=== PATIENT | female | born 1945 | race African-American/Black ===

== ENCOUNTER 2019-07-14 17:27 | Inpatient (IN) | payer MEDICARE ==
[~2019-07-14] VITALS: Ht 167.6 cm; Wt 67.1 kg
[2019-07-14] MEDS ORDERED: ELAVIL10 MG PO (23:30)
[2019-07-14] MEDS ORDERED: PREDNISONE5 MG PO (23:35)
[2019-07-14] MEDS ORDERED: ZYLOPRIM300 MG PO (23:36)
[2019-07-14 23:40] VITALS: BP 151/67
[2019-07-14] MEDS ORDERED: LIPITOR80 MG PO (23:40)
[2019-07-14] MEDS ORDERED: BUMEX2 MG PO (23:41)
[2019-07-14] MEDS ORDERED: COREG 3.1253.125 MG PO (23:42)
[2019-07-14] MEDS ORDERED: CARAFATE1 G PO (23:44)
[2019-07-14] MEDS ORDERED: FOLIC ACID1 MG PO (23:45)
[2019-07-14] MEDS ORDERED: FUROSEMIDE40 MG PO (23:47)
[2019-07-14] MEDS ORDERED: NEURONTIN 300300 MG PO (23:48)
[2019-07-14 23:50] VITALS: BMI 21.2
[2019-07-14] MEDS ORDERED: FERROUS SULFAT325 MG PO (23:54)
[2019-07-14] MEDS ORDERED: GLIMEPIRIDE2 MG PO (23:54)
[2019-07-14] MEDS ORDERED: COZAAR25 MG PO (23:55)
[2019-07-14] MEDS ORDERED: PROTONIX40 MG PO (23:56)
[2019-07-14] MEDS ORDERED: TREXALL7.5 MG PO (23:56)
[2019-07-14] MEDS ORDERED: POTASSIUM CHLO10 ME1 PO (23:57)
[2019-07-14] MEDS ORDERED: JANUVIA25 MG PO (23:59)
[2019-07-15] VITALS (23 sets, daily range): BP systolic 99–151; BP diastolic 45–89; BMI 23.0
[2019-07-15 00:24] LABS: ANION GAP 16.4 mmol/L (8-16); CALCIUM 10.3 mg/dL (8.5-10.1); CARBON DIOXIDE 24.5 mmol/L (21.0-32.0); CREATININE - SERUM 6.2 mg/dL (0.6-1.3); POTASSIUM - SERUM 4.9 mmol/L (3.5-5.1)
[2019-07-15 00:43] LABS: HEMATOCRIT 30.1 % (36.0-48.0); HEMOGLOBIN 9.7 g/dL (12-16); MCH 30.2 pg (26.0-34.0); MCHC 32.2 g/dL (31.0-37.0); MCV 93.8 fL (80.0-100.0); MEAN PLATELET VOLUME 11.2 fL (7.4-10.4); PLATELET COUNT 568 10x3/uL (130-400); RBC 3.21 10x6/uL (4.00-5.40); RDW 21.2 % (11.5-14.5); WBC 24.4 10x3/uL (4.8-10.8)
[2019-07-15 01:11] LABS: LYMPHOCYTES 10 % (15-50); MONOCYTES 7 % (2-11); NEUTROPHILS 78 % (40-80); PLATELET ESTIMATE INCREASED
[2019-07-15 04:30] LABS: INR 1.11 (0.85-1.17); PROTIME 13.8 SECONDS (11.6-15.0)
[2019-07-15 04:38] LABS: ALBUMIN 2.4 g/dL (3.4-5.0); ANION GAP 18.5 mmol/L (8-16); BILIRUBIN - TOTAL 0.54 mg/dL (0.2-1.3); CALCIUM 10.2 mg/dL (8.5-10.1); CARBON DIOXIDE 22.6 mmol/L (21.0-32.0); CREATININE - SERUM 6.5 mg/dL (0.6-1.3); MAGNESIUM - SERUM 1.9 mg/dL (1.8-2.4); PHOSPHOROUS 4.9 mg/dL (2.5-4.9); POTASSIUM - SERUM 5.1 mmol/L (3.5-5.1); PROTEIN - SERUM 6.3 g/dL (6.4-8.2); VANCOMYCIN - RANDOM 4.9 ug/mL (10.0-20.0)
[2019-07-15 04:44] LABS: BASOPHILS 0.6 % (0-2); EOSINOPHILS 0 % (0-7); HEMATOCRIT 29.2 % (36.0-48.0); HEMOGLOBIN 9.4 g/dL (12-16); IMMATURE GRANULOCYTES 9.5 % (0-5); MCH 30.3 pg (26.0-34.0); MCHC 32.2 g/dL (31.0-37.0); MCV 94.2 fL (80.0-100.0); MEAN PLATELET VOLUME 11.2 fL (7.4-10.4); MONOCYTES 13.2 % (2-11); NEUTROPHILS 69.7 % (40-80); PLATELET COUNT 569 10x3/uL (130-400); RDW 21.3 % (11.5-14.5); WBC 24.2 10x3/uL (4.8-10.8)
--- NOTE | 2019-07-15 07:16 | NUR ---
CALLED PHYSICIAN CONSULT TO RENAL AND SPOKE WITH DR. GUPTA.
--- NOTE | 2019-07-15 07:22 | NUR ---
RECEIVED REPORT FROM SYLVIA WARREN. PT RESTING IN BED C VSS. RESPONDS TO PAIN. WILL CHECK ORDERS AND CONTINUE TO MONITOR
--- NOTE | 2019-07-15 08:33 | NUR ---
PEDAL PULSES WEAK BY DOPPLER BILATERIALLY
--- NOTE | 2019-07-15 09:00 | NUR ---
SPOKE TO FAMILY MEMBER ON PHONE. CHANGED PASSWORD TO [facility]. ALSO STATED OTHER FAMILY MEMBERS WILL BE COMING TO VISIT TODAY
--- NOTE | 2019-07-15 10:44 | NUR ---
APTT IS WITHIN GOAL RANGE AT 70 FROM 0930 DRAW. WILL LEAVE HEPARIN DRIP AT 1300UNITS/HR AND REDRAW APTT IN AM.
--- NOTE | 2019-07-15 11:00 | NUR ---
DIALYSIS NURSE HERE TO BEGIN DIALYZING. VSS
--- NOTE | 2019-07-15 14:30 | NUR ---
DIALYSIS COMPLETED. 1 LITER REMOVED. VSS
--- NOTE | 2019-07-15 15:22 | NUR ---
PATIENT UNABLE TO DRINK WATER FROM STRAW SO VALTREX MED HELD. SWALLOW EVAL ORDERED. WILL TRY AGAIN TOMORROW
--- NOTE | 2019-07-15 15:25 | NUR ---
REASSESSMENT COMPLETE, NO CHANGES NOTED, PT RESTING AT THIS TIME, VSS, CALL LIGHT IN REACH
--- NOTE | 2019-07-15 18:03 | NUR ---
20 GUAGE PIV STARTED IN LEFT AC.
--- NOTE | 2019-07-15 19:06 | NUR ---
REPORT RECIEVED, PT RETURNED FROM CTA. PT RESTING IN BED, RESPONDS TO VOICE, GARBLED SPEECH. ASSESSMENT COMPLETED, NO ACUTE DISTRESS NOTED. RT SUBCLAVIAN HEMOSPLIT, DRESSING CDI. L JUGULAR INFUSING, RT WRIST PIV INFUSING, SEE IV FLOWSHEET, L AC PIV TO SL. PT ON ROOM AIR, WILL CONTINUE TO MONITOR.
--- NOTE | 2019-07-15 21:00 | NUR ---
PT RESTING IN BED, AROUSES TO VOICE BUT QUICKLY DRIFTS OFF. PM MEDS ADMINISTERED, WILL CONTINUE TO MONITOR.
--- NOTE | 2019-07-15 23:00 | NUR ---
PT RESTING IN BED, RESPIRATIONS EVEN AND UNLABORED, NO ACUTE DISTRESS NOTED.
[2019-07-16] VITALS (15 sets, daily range): BP systolic 107–136; BP diastolic 38–74; Ht 167.6 cm; Wt 67.1 kg
--- NOTE | 2019-07-16 01:00 | NUR ---
PT RESTING IN BED, NO SIGNS OF ACUTE DISTRESS.
--- NOTE | 2019-07-16 03:00 | NUR ---
PT PERIODICALLY SHAKES HEAD FROM LEFT TO RIGHT FOR A BRIEF PERIOD, DENIES PAIN. ORAL CARE PROVIDED, WILL CONTINUE TO MONITOR.
[2019-07-16 03:59] LABS: BASOPHILS 0.3 % (0-2); EOSINOPHILS 0.1 % (0-7); HEMATOCRIT 25.7 % (36.0-48.0); HEMOGLOBIN 8.3 g/dL (12-16); IMMATURE GRANULOCYTES 9.1 % (0-5); LYMPHOCYTES 6.8 % (15-50); MCH 30.2 pg (26.0-34.0); MCHC 32.3 g/dL (31.0-37.0); MCV 93.5 fL (80.0-100.0); MEAN PLATELET VOLUME 10.9 fL (7.4-10.4); MONOCYTES 11.6 % (2-11); NEUTROPHILS 72.1 % (40-80); PLATELET COUNT 611 10x3/uL (130-400); RBC 2.75 10x6/uL (4.00-5.40); RDW 21.2 % (11.5-14.5); WBC 23.8 10x3/uL (4.8-10.8)
[2019-07-16 04:10] LABS: ANION GAP 17.2 mmol/L (8-16); BILIRUBIN - TOTAL 0.55 mg/dL (0.2-1.3); CALCIUM 9.1 mg/dL (8.5-10.1); MAGNESIUM - SERUM 1.7 mg/dL (1.8-2.4); PHOSPHOROUS 5.5 mg/dL (2.5-4.9); PROTEIN - SERUM 5.7 g/dL (6.4-8.2)
[2019-07-16 04:16] LABS: CREATININE - SERUM 4.7 mg/dL (0.6-1.3); POTASSIUM - SERUM 4.2 mmol/L (3.5-5.1)
--- NOTE | 2019-07-16 05:00 | NUR ---
PT CONTINUES TO OCCASIONALLY MOAN FOR BREIF PERIODS OF TIME. NO ACUTE DISTRESS NOTED, WILL CONTINUE TO MONITOR.
--- NOTE | 2019-07-16 08:33 | NUR ---
REPORT RECEVIED FROM THE OFF GOING RN. SEE ASSESSMENT IN THE PTS FLOW SHEET. PT LYING IN BED. PT AROUSES TO VERBAL STIMULI BUT ONLY MAKES GARBLED NOISES. PT ABLE TO FORESTRY FOREMAN HER HANDS AND SQUEEZE HANDS ON COMOMAND BUT ONCE ASKED TO MOVE HER FEET, SHE WILL NOT. WHENEVER ASSESSING FEET, PT STARTED TO MOAN VERY LOUDLY. RIGHT SUB CLAV HEMOSPLIT NOTED. DRESSING CD/I. LEFT EJ IV NOTED. PATENT. DRESSING C/D/I. PPM NOTD TO LEFT UPPER CHEST. PACING ON THE MONITOR. VSS AT THIS TIME. CALL LIGHT IN REACH. WILL CONT POC.
--- NOTE | 2019-07-16 11:00 | NUR ---
REASSESSMENT COMPLETE PER FLOW SHEET. VSS. PT DENIES NEEDS. REPOSITIONED FOR COMFORT. WILL CONTINUE TO MONITOR
--- NOTE | 2019-07-16 12:00 | NUR ---
PT MORE AWAKE AND ANSWEREING YES AND NO QUESTIONS. DYSPAGIA NOTED.
--- NOTE | 2019-07-16 13:19 | NUR ---
PT INC OF BOWEL. PT CLEANED. 2 OPEN SORES NOTED TO THE PTS BUTTOCKS. FULL CHD BATH GIVEN AND BED LINEN CHANGED. CALL LIGHT IN REACH. WILL CONT POC.
[2019-07-16 14:02] LABS: HEMATOCRIT 28.3 % (36.0-48.0); HEMOGLOBIN 8.7 g/dL (12-16)
--- NOTE | 2019-07-16 20:05 | NUR ---
REPORT GIVEN TO JOHNNY SCHUMACHER VSS. TRASPORTED TO ROOM 9131
[2019-07-17] VITALS: BP 138/41
--- NOTE | 2019-07-17 02:13 | NUR ---
RECEIVED TO FLOOR ACCOMPANIED BY STAFF. PT INCONT OF BOWEL, BM LOOSE. SORES TO COCCYX NOTED. PERICARE PROVIDED. PT IS ALERT AND ANSWERS QUESTIONS CORRECTLY IF SHE REPLIES. REPORTS PAIN TO BILAT LOWER EXTREMETIES. HEPARIN DRIP VERIFIED WITH RN. INFUSING AT 12CC/HR. WILL CONTINUE TO MONITOR.
[2019-07-17 04:00] VITALS: BP 131/43
[2019-07-17 06:37] LABS: ALBUMIN 2.1 g/dL (3.4-5.0); BILIRUBIN - TOTAL 0.63 mg/dL (0.2-1.3); CALCIUM 8.4 mg/dL (8.5-10.1); POTASSIUM - SERUM 4.8 mmol/L (3.5-5.1); PROTEIN - SERUM 5.2 g/dL (6.4-8.2)
[2019-07-17 06:38] LABS: ANION GAP 26.4 mmol/L (8-16); CARBON DIOXIDE 16.4 mmol/L (21.0-32.0); CREATININE - SERUM 6.5 mg/dL (0.6-1.3); HEMATOCRIT 28.9 % (36.0-48.0); HEMOGLOBIN 8.9 g/dL (12-16); MAGNESIUM - SERUM 2.6 mg/dL (1.8-2.4); MCH 30.2 pg (26.0-34.0); MCHC 30.8 g/dL (31.0-37.0); MEAN PLATELET VOLUME 10.7 fL (7.4-10.4); PLATELET COUNT 677 10x3/uL (130-400); RBC 2.95 10x6/uL (4.00-5.40); WBC 27.1 10x3/uL (4.8-10.8)
--- NOTE | 2019-07-17 06:48 | NUR ---
I have reviewed this patient and I concur with the Shift Assessment completed by the Licensed Practical Nurse today this shift.
--- NOTE | 2019-07-17 07:16 | NUR ---
REPORT RECEIVED. WILL CONTINUE WITH POC. PT CURRENTLY LYING ON RIGHT SIDE RESTING. CALL LIGHT W/I REACH. PT IS ON CONTACT ISO FOR C-DIFF. RR EVEN AND UNLABORED ON RA. HEPARIN INFUSING @12ML/HR VIA R.FOR PIV. NS INFUSING @KVO VIA L.IJ PIV. NO S/S OF DISTRESS NOTED. WILL CTM.
[2019-07-17 08:03] VITALS: BP 147/73
[2019-07-17 08:15] LABS: LYMPHOCYTES 8 % (15-50); MONOCYTES 9 % (2-11); NEUTROPHILS 78 % (40-80); PLATELET ESTIMATE INCREASED
--- NOTE | 2019-07-17 09:42 | NUR ---
AM MEDICATIONS ADMININSTERED. PT HAD LARGE LOOSE BM. CLEANED PT AND APPLIED NEW LINEN. PT HAS 3 SMALL VANESSA SIZE STAGE TWO BREAKDOWN AREAS ON COCCYX. APPLIED MEPILEX DRESSING. PT RESPONDS TO VERBAL COMMANDS BUT IS LETHARGIC AND CONFUSED TO SITUATION. WILL CTM.
[2019-07-17 11:55] VITALS: BP 148/61
--- NOTE | 2019-07-17 13:24 | NUR ---
Nutrition Follow-up: NPO since admit. Procalamine started @ 50 mL/hr. Being seen by ST; they report that she is safe for PO intake of at least puree with thin liquids but it is unlikely that she will eat much 2/2 odynophagia. Oral ulcerations present. Per nurse, pt with 3 small evelyn size stage 2 breakdown areas on coccyx. Diet: NPO Wt: 148# Last BM: 07/17 Labs noted: Glu 144, K+ 4.8, PO4 7.0, Alb 2.1 Meds noted: Humalog -Procalamine at current rate provides 294 kcal & 36 g protein; inadequate to meet needs. -Rec consider more substantial nutrition support. Pt has increased needs 2/2 dialysis and skin breakdowns. RD available for assistance. -Please obtain new wt. -RD following.
[2019-07-17 13:49] LABS: HEMATOCRIT 25.3 % (36.0-48.0)
[2019-07-17 15:55] VITALS: BP 127/71
--- NOTE | 2019-07-17 17:23 | MORECARE ---
CASE MANAGEMENT DISCHARGE SUMMARY PATIENT: SUMI MCKAY UNIT: [id number] ADM DATE: 07/14/19 AGE: 74 : 43 SEX: F ROOM/BED: D.2566 AUTHOR: NATA OROPEZA PHYSICIAN: REFERRING PHYSICIAN: EDA GUERRA MD DATE OF SERVICE: 07/17/19 Discharge Plan Patient Name: SUMI MCKAY Facility: [facility]:[place] : 1945 Planned Disposition: Anticipated Discharge Date: Discharge Date: Expected LOS: Initial Reviewer: [id number] Initial Review Date: 07/17/2019 Generated: 07/17/19 6:23 pm Comments DCP- Discharge Planning Updated by [email or web address]: Amy Salamanca on 07/17/19 4:[address] Patient Name: SUMI MCKAY Admission Status: Elective Accout number: [id number] Admission Date: 07-14-2019 : 1945 Admission Diagnosis: Attending: EDA GUERRA Current LOS: 3 Anticipated DC Date: Planned Disposition: Primary Insurance: [facility] MEDIC[employer] SOLUTIONS Discharge Planning Comments: CM MET WITH PATIENT BUT IS VERY HARD TO UNDERSTAND BECAUSE OF THE SORES ON HER MOUTH. SHE DOES HAVE HH BUT DOESN'T KNOW WHO WITH AND HER [facility] LIVES WITH HER. CM WILL TALK TO [facility] WHEN SHE IS HERE. CM TO FOLLOW AND ASSIST. Typewriter Assembler: Amy Salamanca Patient Name: SUMI MCKAY Page 85058 at 1723 All edits/amendments must be made on the electronic document DICTATION DATE: 07/17/191722 TOP CUTTER: EUNICE 07/17/191722 RPT#: [id number] DC DATE: STATUS: ADM IN [facility] [address] [place] [address] END OF REPORT
--- NOTE | 2019-07-17 19:40 | NUR ---
REPORT RECIEVED AND ROUNDING COMPLETE. PATIENT LAYING IN BED IN SUPINE POSITION. PATIENT HAS A LEFT IJ PIV, LEFT AC PIV AND A RIGHT HAND PIV. ALL PIV ARE PATENT AND RUNNING FLUIDS, NO S/SX OF INFILTRATION OR INFECTION AT THIS TIME. PATIENT IS RECIVING 02 VIA NASAL CANNULA AT THIS TIME. PATIENT IS ISO FOR CDIFF. PATIENT ASKED FOR A DRINK OF WATER, ASSISTED WITH THIS. PATIENT IS SHOWING NO S/SX OF DISTRESS AT THIS TIME. CALLIGHT WITHIN REACH AND BED IN LOWEST LOCKED POSITION.
[2019-07-17 20:00] VITALS: BP 120/38
--- NOTE | 2019-07-17 20:41 | NUR ---
CALLED AND TALKED WITH GUILLE CONCERNING PATIENT. PATIENT'S TEMP. IS ELEVATED AND B/P IS LOW. PATIENT IS LETHARGIC. GUILLE HENDERSON HAS NO NEW ORDERS BUT STATED TO CALL RENAL AT THIS TIME. RENAL RETAIL ROUTE SUPERVISOR HAS BEEN PAGED AWAITING CALL BACK.
[2019-07-17 21:26] LABS: HEMOGLOBIN 7.6 g/dL (12-16)
[2019-07-18] VITALS: BP 132/48
--- NOTE | 2019-07-18 01:59 | NUR ---
I have reviewed this patient and I concur with the Shift Assessment completed by the Licensed Practical Nurse today this shift.
--- NOTE | 2019-07-18 03:39 | NUR ---
PATIENT IS RECIEVING A BED BATH BY CNAS AT THIS TIME.
[2019-07-18 04:00] VITALS: BP 111/36
[2019-07-18 05:18] LABS: BASOPHILS 0.2 % (0-2); EOSINOPHILS 0.3 % (0-7); HEMATOCRIT 22.8 % (36.0-48.0); IMMATURE GRANULOCYTES 7.1 % (0-5); LYMPHOCYTES 7.1 % (15-50); MCH 30.3 pg (26.0-34.0); MCHC 31.6 g/dL (31.0-37.0); MCV 95.8 fL (80.0-100.0); MEAN PLATELET VOLUME 9.9 fL (7.4-10.4); NEUTROPHILS 73.3 % (40-80); PLATELET COUNT 711 10x3/uL (130-400); RBC 2.38 10x6/uL (4.00-5.40); RDW 20.9 % (11.5-14.5); WBC 29.3 10x3/uL (4.8-10.8)
[2019-07-18 05:23] LABS: HEMOGLOBIN 7.2 g/dL (12-16)
[2019-07-18 05:25] LABS: ALBUMIN 1.8 g/dL (3.4-5.0); BILIRUBIN - TOTAL 0.46 mg/dL (0.2-1.3); CALCIUM 8.1 mg/dL (8.5-10.1); CREATININE - SERUM 7.8 mg/dL (0.6-1.3); MAGNESIUM - SERUM 2.7 mg/dL (1.8-2.4); PHOSPHOROUS 6.7 mg/dL (2.5-4.9); POTASSIUM - SERUM 4.3 mmol/L (3.5-5.1); PROTEIN - SERUM 4.8 g/dL (6.4-8.2); VANCOMYCIN - RANDOM 14.7 ug/mL (10.0-20.0)
[2019-07-18 05:27] LABS: ANION GAP 18.7 mmol/L (8-16); CARBON DIOXIDE 21.6 mmol/L (21.0-32.0)
--- NOTE | 2019-07-18 07:44 | NUR ---
PT RESTING PEACEFULLY, NO SIGNS AND SYMPTOMS OF ACUTE DISTRESS. BREATHS EVEN, REGULAR, AND UNLABORED. CL IN REACH,SR2. NO FAMILY AT BEDSIDE.
[2019-07-18 08:13] VITALS: BP 130/37
[2019-07-18 12:49] VITALS: BP 130/39
--- NOTE | 2019-07-18 15:55 | NUR ---
PT IN ROOM DIALYSIS
[2019-07-18 16:42] VITALS: BP 126/60
--- NOTE | 2019-07-18 17:29 | NUR ---
I have reviewed this patient and I concur with the Shift Assessment completed by the Licensed Practical Nurse today this shift.
--- NOTE | 2019-07-18 19:26 | NUR ---
RECEIVED REPORT, WILL ASSUME CARE OF PT, PT IS HAVING DIALYSIS IN ROOM, ASKING FOR PAIN MEDS, WILL GIVE WHEN TIME, BED IS LOW, SRX2, CALL LIGHT IN REACH, WILL CONTINUE PLAN OF CARE
[2019-07-18 20:05] VITALS: BP 131/62
[2019-07-19] VITALS: BP 136/56
[2019-07-19 04:00] VITALS: BP 134/64
--- NOTE | 2019-07-19 05:35 | NUR ---
I have reviewed this patient and I concur with the Shift Assessment completed by the Licensed Practical Nurse today this shift.
[2019-07-19 06:15] LABS: ALBUMIN 2.1 g/dL (3.4-5.0); ANION GAP 21.8 mmol/L (8-16); BILIRUBIN - TOTAL 0.58 mg/dL (0.2-1.3); CALCIUM 8.7 mg/dL (8.5-10.1); CARBON DIOXIDE 19.8 mmol/L (21.0-32.0); CREATININE - SERUM 6.7 mg/dL (0.6-1.3); MAGNESIUM - SERUM 2.5 mg/dL (1.8-2.4); PHOSPHOROUS 6.2 mg/dL (2.5-4.9); POTASSIUM - SERUM 4.6 mmol/L (3.5-5.1); PROTEIN - SERUM 5.7 g/dL (6.4-8.2)
[2019-07-19 06:17] LABS: HEMATOCRIT 35.4 % (36.0-48.0); HEMOGLOBIN 11.6 g/dL (12-16); MCH 30.3 pg (26.0-34.0); MCHC 32.8 g/dL (31.0-37.0); MCV 92.4 fL (80.0-100.0); MEAN PLATELET VOLUME 10.7 fL (7.4-10.4); PLATELET COUNT 679 10x3/uL (130-400); RBC 3.83 10x6/uL (4.00-5.40); RDW 19.9 % (11.5-14.5)
--- NOTE | 2019-07-19 07:00 | NUR ---
RECEIVED REPORT. ASSUMED CARE OF PATIENT. RESTING IN BED WITH EYES CLOSED. RESP EVEN AND UNLABORED. HEPARIN INFUSING AT 12 UNITS/HR, AWAITING FOR PTT TO RESULT. CALL LIGHT WITHIN REACH. NO ACUTE DISTRESS.
--- NOTE | 2019-07-19 07:24 | NUR ---
PTT RESULTED 104.1. PER PROTOCOL, HEPARIN DRIP OFF AT THIS MINUTE AND WILL KEEP OFF FOR 30 MINUTES AND WHEN RESUMED IN 30MINUTES, WILL DECREASE BY 200 UNITS/HR. CURRENT RATE RUNNING @ 12, WHEN RESTARTED IN 30 MINUTES, HEPARIN WILL BE INFUSED AT 10 UNITS/HR.
--- NOTE | 2019-07-19 07:56 | NUR ---
HEPARIN TURNED BACK ON AT THIS TIME AND INFUSING AT 10 UNITS/HR. REDRAW TIMED FOR 6 HOURS FROM NOW.
[2019-07-19 08:00] VITALS: BP 123/56
[2019-07-19 08:25] LABS: EOSINOPHILS 1 % (0-7); LYMPHOCYTES 5 % (15-50); MONOCYTES 9 % (2-11); NEUTROPHILS 82 % (40-80); PLATELET ESTIMATE INCREASED
--- NOTE | 2019-07-19 08:45 | NUR ---
FSBS 292. 6 UNITS HUMALOG ADMINISTERED.
--- NOTE | 2019-07-19 10:14 | NUR ---
UNABLE TO ADMINISTER ANY PO MEDICATIONS TO PATIENT. SHE STARTED SHAKING HER HEAD AND CLOSING HER MOUTH MOANING THE WORD NO EVEN WHEN THIS DOT ETCHER TRIED TO PERFORM ORAL CARE. PATIENT MEDICATED FOR PAIN AT THIS TIME. NO DISTRESS.
--- NOTE | 2019-07-19 11:26 | NUR ---
SPOKE TO SHONDA IN PHARMACY TO ADJUST DAYS THAT VALTREX IS GIVEN. PATIENT RECEIVES HD ON ,, AND VALTREX IS TO BE GIVEN ON HD DAYS AFTER HD IS COMPLETED. SHONDA STATED SHE WILL CORRECT IT TO REFLECT DIALYSIS DAYS ON THE DEC.
--- NOTE | 2019-07-19 11:37 | NUR ---
PATIENT RESTING PEACEFULLY AT THIS TIME. NO MOANING OR GRIMACING. NO FAMILY AT BEDSIDE. CALL LIGHT WITHIN REACH. NO DISTRESS.
[2019-07-19 12:41] VITALS: BP 113/39
--- NOTE | 2019-07-19 13:55 | NUR ---
AT BEDSIDE FOR ROUNDS. PATIENT IS IN PAIN AND CRIES OUT WHEN MOVED, TOUCHED, REPOSITIONED. DISCUSSED PATIENTS PAIN MEDICATIONS. NEW ORDER RECEIVED FOR DILAUDID PRN BUPRENEX IS NOT CONTROLLING PATIENTS PAIN. THANKED .
--- NOTE | 2019-07-19 14:26 | NUR ---
FSBS 252. 6 UNITS HUMALOG ADMINISTERED. ORAL CARE PROVIDED. CALL LIGHT WITHIN REACH.
[2019-07-19 15:13] VITALS: BP 110/40
--- NOTE | 2019-07-19 15:29 | NUR ---
PTT RESULTED 74.0, NO CHANGE IN DOSE AND NO REDRAW UNTIL TOMORROW AM. LAB ORDER FOR PTT IN AM PLACED.
--- NOTE | 2019-07-19 16:00 | NUR ---
PATIENTS FAMILY AT BEDSIDE. DISCUSSED PAIN MEDICATION WITH THE DAUGHTER DAVID AND THAT THE PATIENTS BP HAS BEEN LOW AND THE PAIN MEDICATION IS DROPPING HER BP. EDUCATED ABOUT RISK VS BENEFITS. PATIENTS DAUGHTER AT THIS TIME DID NOT WANT TO TAKE A CHANCE OF "BOTTOMING" OUT BLOOD PRESSURE DIASTOLIC PRESSURE IS 33 AT THIS TIME. WILL CONTINUE TO MONITOR AND PROVIDE COMFORT TO PATIENT.
--- NOTE | 2019-07-19 19:24 | NUR ---
PT CARE ASSUMED. PT RESTING IN BED ON HER LEFT SIDE. RR EVEN AND UNLABORED ON RA. NO S/S OF DISTRESS NOTED. NO NEEDS EXPRESSED. CALL LIGHT IN REACH. WILL CTM.
[2019-07-19 20:00] VITALS: BP 130/67
[2019-07-20] VITALS: BP 120/43
[2019-07-20 04:00] VITALS: BP 136/48
[2019-07-20 06:55] LABS: BASOPHILS 0.7 % (0-2); EOSINOPHILS 0.2 % (0-7); HEMATOCRIT 33.4 % (36.0-48.0); HEMOGLOBIN 10.9 g/dL (12-16); IMMATURE GRANULOCYTES 7.1 % (0-5); LYMPHOCYTES 4.6 % (15-50); MCHC 32.6 g/dL (31.0-37.0); MEAN PLATELET VOLUME 10.1 fL (7.4-10.4); MONOCYTES 13.7 % (2-11); NEUTROPHILS 73.7 % (40-80); PLATELET COUNT 615 10x3/uL (130-400); RBC 3.63 10x6/uL (4.00-5.40); RDW 19.3 % (11.5-14.5)
[2019-07-20 07:10] LABS: ANION GAP 21.4 mmol/L (8-16); CALCIUM 8.8 mg/dL (8.5-10.1); CARBON DIOXIDE 18.9 mmol/L (21.0-32.0); CREATININE - SERUM 7.5 mg/dL (0.6-1.3); POTASSIUM - SERUM 5.3 mmol/L (3.5-5.1); VANCOMYCIN - RANDOM 21.9 ug/mL (10.0-20.0)
[2019-07-20 08:02] VITALS: BP 127/43
--- NOTE | 2019-07-20 08:11 | NUR ---
PTT THIS AM WAS 64. INCREASED HEPARIN IFUSION FROM 10 TO 11 ML/HR PER PROTOCOL. ORDERED REPEAT PTT FOR 1400 PER PROTOCOL.
--- NOTE | 2019-07-20 12:43 | NUR ---
PT FAMILY HERE AND HAS DECIDED TO ADMIT PT TO HOSPICE SERVICES. NOTIFIED GEORGES WITH CASE MANAGEMENT. PT RESTING IN BED, FAMILY DENIES ANY NEEDS AT THIS TIME, WILL CONT TO FOLLOW POC
--- NOTE | 2019-07-20 13:11 | MORECARE ---
CASE MANAGEMENT DISCHARGE SUMMARY PATIENT: SUMI MCKAY UNIT: [id number] ADM DATE: 07/14/19 AGE: 74 : 43 SEX: F ROOM/BED: D.1914 AUTHOR: NATA OROPEZA PHYSICIAN: REFERRING PHYSICIAN: EDA GUERRA MD DATE OF SERVICE: 07/20/19 Discharge Plan Patient Name: SUMI MCKAY [facility] : 1945 Planned Disposition: Home with Hospice Anticipated Discharge Date: 07/20/19 Discharge Date: Expected LOS: 6 Initial Reviewer: [email or web address] Initial Review Date: 07/17/2019 Generated: 07/20/19 2:10 pm Comments DCP- Discharge Planning Updated by [id number]: Amy Salamanca on 07/17/19 4:[address] Patient Name: SUMI MCKAY Admission Status: Elective Accout number: [id number] Admission Date: 07-14-2019 : 1945 Admission Diagnosis: Attending: EDA GUERRA Current LOS: 3 Anticipated DC Date: Planned Disposition: Primary Insurance: [facility] MEDICARE SOLUTIONS Discharge Planning Comments: CM MET WITH PATIENT BUT IS VERY HARD TO UNDERSTAND BECAUSE OF THE SORES ON HER MOUTH. SHE DOES HAVE HH BUT DOESN'T KNOW WHO WITH AND [facility]. CM WILL TALK TO [facility] WHEN SHE IS HERE. CM TO FOLLOW AND ASSIST. Cemetery Keeper: Amy Salamanca Last DP export: 07/17/19 4:23 p Patient Name: SUMI MCKAY Page 06451 at 1311 All edits/amendments must be made on the electronic document DICTATION DATE: 07/20/19 1310 WELDING INSTRUCTOR: EUNICE 07/20/19 1310 RPT#: [id number] DC DATE: STATUS: ADM IN [facility] [address] [place] [address] END OF REPORT
--- NOTE | 2019-07-20 13:21 | MORECARE ---
CASE MANAGEMENT DISCHARGE SUMMARY PATIENT: SUMI MCKAY UNIT: [id number] ADM DATE: 07/14/19 AGE: 74 : 43 SEX: F ROOM/BED: D.3892 AUTHOR: NATA OROPEZA PHYSICIAN: REFERRING PHYSICIAN: EDA GUERRA MD DATE OF SERVICE: 07/20/19 Discharge Plan Patient Name: SUMI MCKAY Facility: [facility]:[place] : 1945 Planned Disposition: Home with Hospice Anticipated Discharge Date: 07/20/19 Discharge Date: Expected LOS: 6 Initial Reviewer: [email or web address] Initial Review Date: 07/17/2019 Generated: 07/20/19 2:21 pm Comments DCP- Discharge Planning Updated by [email or web address]: Amy Salamanca on 07/17/19 4:[address] Patient Name: SUMI MCKAY Admission Status: Elective Accout number: [id number] Admission Date: 07-14-2019 : 1945 Admission Diagnosis: Attending: EDA GUERRA Current LOS: 3 Anticipated DC Date: Planned Disposition: Primary Insurance: [facility] MEDICARE SOLUTIONS Discharge Planning Comments: CM MET WITH PATIENT BUT IS VERY HARD TO UNDERSTAND BECAUSE OF THE SORES ON HER MOUTH. SHE DOES HAVE HH BUT DOESN'T KNOW WHO WITH AND HER GRANDAUGHTER LIVES WITH HER. CM WILL TALK TO [facility] WHEN SHE IS HERE. CM TO FOLLOW AND ASSIST. Metallurgist Process: Amy Salamanca External Providers External Provider: [facility], [facility]. [facility] Next Contact Date: 07/20/2019 Service Request Date: Service Type: Resolution: Reviewer: Comments: Coverage Notice Reviewer: [id number] Pippa Mohan Notice Issued Date-Time: 07/20/2019 12:35 Notice Type: IM Discharge Notice Notice Delivered To: Family Member Relationship to Patient: Daughter Criminal Justice Teacher Name: EDGAR MCKAY Delivery Method: HAND - Hand Delivered Marilee Days: Prior Verbal Notification: Recipient Understood Notice: Yes Recipient Signature: Yes Med Rec Note Co-signed by Attending: Coverage Notice Comment: Reviewer: [id number] Pippa Mohan Notice Issued Date-Time: 07/20/2019 12:35 Notice Type: Patient Choice Letter Notice Delivered To: Family Member Relationship to Patient: Daughter Criminal Justice Teacher Name: EDGAR MCKAY Delivery Method: HAND - Hand Delivered Marilee Days: Prior Verbal Notification: Recipient Understood Notice: Yes Recipient Signature: Yes Med Rec Note Co-signed by Attending: Coverage Notice Comment: 1- [facility] / 2 - HOSPICE HOME CARE Last DP export: 07/20/19 12:11 p Patient Name: SUMI MCKAY Page 85160 at 1321 All edits/amendments must be made on the electronic document DICTATION DATE: 07/20/19 1321 EFFICIENCY MANAGER: EUNICE 07/20/19 1321 RPT#: [id number] DC DATE: STATUS: ADM IN [facility] [address] [place] [address] END OF REPORT
--- NOTE | 2019-07-20 13:48 | MORECARE ---
CASE MANAGEMENT DISCHARGE SUMMARY PATIENT: SUMI MCKAY UNIT: [id number] ADM DATE: 07/14/19 AGE: 74 : 43 SEX: F ROOM/BED: D.0692 AUTHOR: SANDIPDOC PHYSICIAN: REFERRING PHYSICIAN: EDA GUERRA MD DATE OF SERVICE: 07/20/19 Discharge Plan Patient Name: SUMI MCKAY Facility: [facility]:[place] : 1945 Planned Disposition: Home with Hospice Anticipated Discharge Date: 07/20/19 Discharge Date: Expected LOS: 6 Initial Reviewer: [id number] Initial Review Date: 07/17/2019 Generated: 07/20/19 2:48 pm Comments DCP- Discharge Planning Updated by [email or web address]: Vaibhav Mohan on 07/20/19 12:[address] Patient Name: SUMI MCKAY Encounter No: [id number] : 1945 Primary Insurance: [facility] MEDICARE SOLUTIONS Anticipated DC Date: 07-20-2019 Planned Disposition: Home with Hospice External Planned Provider: HOSPICE HOME CARE DCP follow-up note: CM RECEIVED HOSPICE CONSULT ORDER, MET WITH PT AND THREE DAUGHTERS IN ROOM. PT NOT RESPONSIVE TO CM; DAUGHTERS PRESENT WERE EDGAR MCKAY, DAVID MCKAY AND SPRING. ALL THREE DAUGHTERS HAVE MET WITH THE DOCTOR TODAY AND AGREE FOR HOSPICE CARE FOR PT. THEY PLAN TO TAKE PT TO HER OWN HOME LOCATED AT [address] [place] [address]. FAMILY WILL BE TAKING CARE OF PT AT HOME. THEY USED [facility] FOR THEIR FATHER AND WANT [facility] FIRST CHOICE, SECOND CHOICE IS HOSPICE HOME CARE. IMPORTANT MESSAGE FROM MEDICARE PROVIDED AND EXPLAINED. CHOICE FOR [facility] AND HOSPICE HOME CARE SIGNED. CM CALLED [facility], , SPOKE TO RENETTA AND WAS ADVISED THAT [facility] DOES NOT SERVICE [facility]. CM CALLED HOSPICE HOME CARE, , SPOKE TO DILSHAD WHO TOOK HOSPICE REFERRAL AND WILL CONTACT THEIR [facility] OFFICE AND HAVE A NURSE COME AND MEET WITH FAMILY THIS AFTERNOON. CM ADVISED DILSHAD THAT PT CAN DISCHARGE HOME SOON HOSPICE ARRANGEMENTS AND EQUIPMENT ARE ARRANGED. CM FAXED REFERRAL TO HOSPICE HOME CARE AT [phone]. CM WAITING HOSPICE ACCEPTANCE AND HOME ARRANGEMENTS TO BE COMPLETED BY HOSPICE HOME CARE. WHEN HOSPICE ADVISES THAT ALL ARRANGEMENTS ARE COMPLETED TO RECEIVE PT AT HOME, OBTAIN DISCHARGE ORDERS AND FAX TO HOSPICE HOME CARE AT [phone]. PT TO TRANSPORT HOME VIA AMBULANCE FOR HOSPICE ADMISSION AFTER ARRIVAL AT HOME. Vaibhav Mohan,. CASE MANAGEMENT DCP- Discharge Planning Updated by [email or web address]: Amy Salamanca on 07/17/19 4:[address] Patient Name: SUMI MCKAY Admission Status: Elective Accout number: [id number] Admission Date: 07-14-2019 : 1945 Admission Diagnosis: Attending: EDA GUERRA Current LOS: 3 Anticipated DC Date: Planned Disposition: Primary Insurance: [facility] MEDICARE SOLUTIONS Discharge Planning Comments: CM MET WITH PATIENT BUT IS VERY HARD TO UNDERSTAND BECAUSE OF THE SORES ON HER MOUTH. SHE DOES HAVE HH BUT DOESN'T KNOW WHO WITH AND HER GRANDAUGHTER LIVES WITH HER. CM WILL TALK TO [facility] WHEN SHE IS HERE. CM TO FOLLOW AND ASSIST. Client Solutions Manager: Amy Jadyn Coverage Notice Reviewer: [id number] Pippa Mohan Notice Issued Date-Time: 07/20/2019 12:35 Notice Type: IM Discharge Notice Notice Delivered To: Family Member Relationship to Patient: Daughter Senior Manufacturing Supervisor Name: EDGAR MCKAY Delivery Method: HAND - Hand Delivered Marilee Days: Prior Verbal Notification: Recipient Understood Notice: Yes Recipient Signature: Yes Med Rec Note Co-signed by Attending: Coverage Notice Comment: Reviewer: [id number] Pippa Mohan Notice Issued Date-Time: 07/20/2019 12:35 Notice Type: Patient Choice Letter Notice Delivered To: Family Member Relationship to Patient: Daughter Senior Manufacturing Supervisor Name: EDGAR MCKAY Delivery Method: HAND - Hand Delivered Marilee Days: Prior Verbal Notification: Recipient Understood Notice: Yes Recipient Signature: Yes Med Rec Note Co-signed by Attending: Coverage Notice Comment: 1- [facility] / 2 - HOSPICE HOME CARE Last DP export: 07/20/19 12:21 p Patient Name: SUMI MCKAY Page 15119 at 1348 All edits/amendments must be made on the electronic document DICTATION DATE: 07/20/19 1348 BEE TENDER: EUNICE 07/20/19 1340 RPT#: [id number] SD DATE: STATUS: ADM IN [facility] [address] [place] [address] END OF REPORT
--- NOTE | 2019-07-20 14:34 | EC ---
PATIENT:SUMI MCKAY DATE OF SERVICE: 07/14/19 SEX: F MEDICAL RECORD: [id number] DATE OF : [birth year] LOCATION:D.M2 D.212 AGE OF PATIENT: 74 ADMISSION DATE: 07/14/19 REFERRING PHYSICIAN: INTERPRETING PHYSICIAN: AKHIL ALVARADO MD ECHOCARDIOGRAM REPORT ECHO CHARGES 4 ECHO COMPLETE Date: 07/17/19 CLINICAL DIAGNOSIS: CHF ECHOCARDIOGRAPHIC MEASUREMENTS (adult normal given) AC root (d.<3.7cm) 2.8 cm LV Septum d (<1.2 cm> 1.2 cm Valve Excursion 1.4 cm LV Septum (systole) 1.5 cm Left Atria (s.<4.0cm> 3.5 cm LVPW d(<1.2cm) 1.3 cm RV (d.<2.3cm) 2.9 cm LVPW (sytole) 1.5 cm LV diastole(<5.6CM) 4.5 cm MV E-F(>70mm/sec) cm LV systole 2.5 cm LVOT Diameter 1.6 cm MV exc.(>10mm) cm Est.ejection fraction (50-75%) % DOPPLER: LVIT cm/sec A 81 cm/sec E 71 cm/sec LA cm/sec RVSP 19.8 mmHg LVOT 137 cm/sec AOP1/2T m/s Asc. Ao 202 cm/sec RVOT 122 cm/sec RA cm/sec PA 150 cm/sec AV Gradient Peak 16.3 mmHg AV Mean 6.7 mmHg AV Area 1.9 cm MV Gradient Peak 3.4 mmHg MV Mean 1.3 mmHg MV Area cm COMMENTS: Cop Breaker: Sonja CARLISLE Textile Screen Maker: Cruz Turcios TAPE# PACS Pericardial Effusion N DATE OF SERVICE: 07/17/2019 FINDINGS: 1. Left ventricular chamber size is within normal limits. Left ventricular systolic function is normal at 50%. 2. Left atrium, right atrium, and right ventricular chamber sizes are within normal limits. 3. Valvular structures have normal structure and motion. 4. Doppler interrogation only reveals trace tricuspid regurgitation. No other valvular insufficiency or stenosis. Pulmonary systolic pressure is preserved at ECHOCARDIOGRAM REPORT [id number] SUMI MCKAY 20 mmHg. 5. No evidence of pericardial effusion or left ventricular thrombus. TRANSINT:[id number] Voice Confirmation ID: [id number] DOCUMENT ID: [id number] AKHIL ALVARADO MD at 1434 CC: [id number] DICTATION DATE: 07/17/19 1211 SENIOR CORPORATE ACCOUNTANT: 07/17/19 1325 ADM IN [facility] [address] [place] [id number]
--- NOTE | 2019-07-20 15:11 | MORECARE ---
CASE MANAGEMENT DISCHARGE SUMMARY PATIENT: SUMI MCKAY UNIT: [id number] ADM DATE: 07/14/19 AGE: 74 : 43 SEX: F ROOM/BED: D.2847 AUTHOR: SANDIPDOC PHYSICIAN: REFERRING PHYSICIAN: EDA GUERRA MD DATE OF SERVICE: 07/20/19 Discharge Plan Patient Name: SUMI MCKAY Facility: [facility]:[place] : 1945 Planned Disposition: Home with Hospice Anticipated Discharge Date: 07/21/19 Discharge Date: Expected LOS: 7 Initial Reviewer: [id number] Initial Review Date: 07/17/2019 Generated: 07/20/19 4:11 pm Comments DCP- Discharge Planning Updated by [id number]: Vaibhav Mohan on 07/20/19 2:[address] Patient Name: SUMI MCKAY Encounter No: [id number] : 1945 Primary Insurance: [employer] MED[employer] SOLUTIONS Anticipated DC Date: 07-21-2019 Planned Disposition: Home with Hospice External Planned Provider: HOSPICE HOME CARE DCP follow-up note: CM SPOKE TO MEGHAN OF HOME CARE, THEY WILL ACCEPT PT FOR HOME HOSPICE AND WILL HAVE ALL EQUIPMENT DELIVERED FOR HOME BY TOMORROW, 07-21-19. FAMILY IN AGREEMENT WITH PLAN AND HAVE SIGNED LEGALS FOR HOSPICE HOME CARE SERVICES. DILSHAD OF THE [facility] TO CALL CM AND CONFIRM DELIVERY OF MEDICAL EQUIPMENT TO RECEIVE AND ADMIT PT FOR HOME HOSPICE. CM WAITING HOME EQUIPMENT ARRANGEMENTS TO BE COMPLETED BY HOSPICE HOME CARE 07-21-19. WHEN HOSPICE ADVISES THAT ALL ARRANGEMENTS ARE COMPLETED TO RECEIVE PT AT HOME, OBTAIN DISCHARGE ORDERS AND FAX TO HOSPICE HOME CARE AT [phone]. NOTIFY HOSPICE HOME CARE OF DISCHARGE AT [phone]. PT TO TRANSPORT HOME VIA AMBULANCE FOR HOSPICE ADMISSION AFTER ARRIVAL AT HOME. Vaibhav Mohan. CASE MANAGEMENT DCP- Discharge Planning Updated by [id number]: Vaibhav Mohan on 07/20/19 12:[address] Patient Name: SUMI MCKAY Encounter No: [id number] : 1945 Primary Insurance: [employer] MED[employer]ARE SOLUTIONS Anticipated DC Date: 07-20-2019 Planned Disposition: Home with Hospice External Planned Provider: HOSPICE HOME CARE DCP follow-up note: CM RECEIVED HOSPICE CONSULT ORDER, MET WITH PT AND THREE DAUGHTERS IN ROOM. PT NOT RESPONSIVE TO CM; DAUGHTERS PRESENT WERE EDGAR MCKAY, DAVID MCKAY AND SPRING. ALL THREE DAUGHTERS HAVE MET WITH THE DOCTOR TODAY AND AGREE FOR HOSPICE CARE FOR PT. THEY PLAN TO TAKE PT TO HER OWN HOME LOCATED AT [address] [place] [address]. FAMILY WILL BE TAKING CARE OF PT AT HOME. THEY USED [facility] FOR THEIR FATHER AND WANT [facility], SECOND CHOICE IS HOSPICE HOME CARE. IMPORTANT MESSAGE FROM MEDICARE PROVIDED AND EXPLAINED. CHOICE FOR [facility] AND HOSPICE HOME CARE SIGNED. CM CALLED [facility], , SPOKE TO RENETTA AND WAS ADVISED THAT [facility] DOES NOT [facility]. CM CALLED HOSPICE HOME CARE, , SPOKE TO DILSHAD WHO TOOK HOSPICE REFERRAL AND WILL CONTACT THEIR [place] OFFICE AND HAVE A NURSE COME AND MEET WITH FAMILY THIS AFTERNOON. CM ADVISED DILSHAD THAT PT CAN DISCHARGE HOME SOON HOSPICE ARRANGEMENTS AND EQUIPMENT ARE ARRANGED. CM FAXED REFERRAL TO HOSPICE HOME CARE AT [phone]. CM WAITING HOSPICE ACCEPTANCE AND HOME ARRANGEMENTS TO BE COMPLETED BY HOSPICE HOME CARE. WHEN HOSPICE ADVISES THAT ALL ARRANGEMENTS ARE COMPLETED TO RECEIVE PT AT HOME, OBTAIN DISCHARGE ORDERS AND FAX TO HOSPICE HOME CARE AT [phone]. PT TO TRANSPORT HOME VIA AMBULANCE FOR HOSPICE ADMISSION AFTER ARRIVAL AT HOME. Vaibhav Mohan,. CASE MANAGEMENT DCP- Discharge Planning Updated by [id number]: Amy Salamanca on 07/17/19 4:[address] Patient Name: SUMI MCKAY Admission Status: Elective Accout number: [id number] Admission Date: 07-14-2019 : 1945 Admission Diagnosis: Attending: EDA GUERRA Current LOS: 3 Anticipated DC Date: Planned Disposition: Primary Insurance: [facility] MEDICARE SOLUTIONS Discharge Planning Comments: CM MET WITH PATIENT BUT IS VERY HARD TO UNDERSTAND BECAUSE OF THE SORES ON HER MOUTH. SHE DOES HAVE HH BUT DOESN'T KNOW WHO WITH AND HER GRANDAUGHTER LIVES WITH HER. CM WILL TALK TO [facility] WHEN SHE IS HERE. CM TO FOLLOW AND ASSIST. Brewery Representative: Amy Salamanca Coverage Notice Reviewer: [id number] - Vaibhav Mohan Notice Issued Date-Time: 07/20/2019 12:35 Notice Type: IM Discharge Notice Notice Delivered To: Family Member Relationship to Patient: Daughter Forest Ranger Technician Name: EDAGR MCKAY Delivery Method: HAND - Hand Delivered Marilee Days: Prior Verbal Notification: Recipient Understood Notice: Yes Recipient Signature: Yes Med Rec Note Co-signed by Attending: Coverage Notice Comment: Reviewer: [id number] Pippa Mohan Notice Issued Date-Time: 07/20/2019 12:35 Notice Type: Patient Choice Letter Notice Delivered To: Family Member Relationship to Patient: Daughter Forest Ranger Technician Name: EDGAR MCKAY Delivery Method: HAND - Hand Delivered Marilee Days: Prior Verbal Notification: Recipient Understood Notice: Yes Recipient Signature: Yes Med Rec Note Co-signed by Attending: Coverage Notice Comment: 1- [facility] / 2 - HOSPICE HOME CARE Last DP export: 07/20/19 12:48 p Patient Name: SUMI MCKAY Page [id number] at 1511 All edits/amendments must be made on the electronic document DICTATION DATE: 07/20/19 151 DICTATING MACHINE TRANSCRIBER: EUNICE 07/20/19 1511 RPT#: [id number] DC DATE: STATUS: ADM IN [facility] [address] [place] [address] END OF REPORT
--- NOTE | 2019-07-20 16:39 | NUR ---
PT RESTING IN BED, NO SIGNS OF DISTRESS OR DISCOMFORT NOTED AT THIS TIME, WILL CONT TO FOLLOW POC
--- NOTE | 2019-07-20 16:39 | MORECARE ---
CASE MANAGEMENT DISCHARGE SUMMARY PATIENT: SUMI MCKAY UNIT: [id number] ADM DATE: 07/14/19 AGE: 74 : 43 SEX: F ROOM/BED: D.8439 AUTHOR: SANDIP,DOC PHYSICIAN: REFERRING PHYSICIAN: EDA GUERRA MD DATE OF SERVICE: 07/20/19 Discharge Plan Patient Name: SUMI MCKAY Facility: [facility]:[place] : 1945 Planned Disposition: Home with Hospice Anticipated Discharge Date: 07/21/19 Discharge Date: Expected LOS: 7 Initial Reviewer: [id number] Initial Review Date: 07/17/2019 Generated: 07/20/19 5:38 pm Comments DCP- Discharge Planning Updated by [id number]: Vaibhav Marin on 07/20/19 3:[address] Patient Name: SUMI MCKAY Encounter No: [id number] : 1945 Primary Insurance: [facility] MEDICARE SOLUTIONS Anticipated DC Date: 07-21-2019 Planned Disposition: Home with Hospice External Planned Provider: HOSPICE HOME CARE DCP follow-up note: CM SPOKE TO MEGHAN OF HOME CARE, THEY WILL ACCEPT PT FOR HOME HOSPICE AND WILL HAVE ALL EQUIPMENT DELIVERED FOR HOME BY TOMORROW, 07-21-19. FAMILY IN AGREEMENT WITH PLAN AND HAVE SIGNED LEGALS FOR HOSPICE HOME CARE SERVICES. DILSHAD OF THE [facility] TO CALL CM AND CONFIRM DELIVERY OF MEDICAL EQUIPMENT TO RECEIVE AND ADMIT PT FOR HOME HOSPICE. CM WAITING HOME EQUIPMENT ARRANGEMENTS TO BE COMPLETED BY HOSPICE HOME CARE 07-21-19. WHEN HOSPICE ADVISES THAT ALL ARRANGEMENTS ARE COMPLETED TO RECEIVE PT AT HOME, OBTAIN DISCHARGE ORDERS AND FAX TO HOSPICE HOME CARE AT [phone]. NOTIFY HOSPICE HOME CARE OF DISCHARGE AT [phone]. PT TO TRANSPORT HOME VIA AMBULANCE FOR HOSPICE ADMISSION AFTER ARRIVAL AT HOME. Vaibhav Marin,. CASE MANAGEMENT Appended by Vaibhav Marin on 07/20/2019 16:32 CDT: CM RECEIVED CALL FROM JEREMIAS OF HOSPICE HOME CARE, ; THEIR MEDICAL EQUIPMENT PERSON CALLED FAMILY TO ARRANGE MEDICAL EQUIPMENT AND WAS INFORMED BY A FAMILY MEMBER THAT PT WILL NOT DISCHARGE HOME UNTIL SATURDAY. CM REVIEWED CHART WHICH HAD NO INDICATIONS OF THIS FACT AND NOTES THAT HOSPICE IS BEING ARRANGED FOR PT'S DISCHARGE HOME. BOB INFORMED CM THAT IT IS FAMILY TELLING THEM PT WILL NOT DISCHARGE UNTIL AND ASSURED CM THAT THEY CAN DELIVER MEDICAL EQUIPMENT PRIOR TO THEN WITH FAMILY COOPERATION. CM ATTEMPTED TO SEE FAMILY IN ROOM, THEY ARE NOT THERE. CM CALLED EDGAR MCKAY, PRIMARY CONTACT, , THERE WAS NO ANSWER, CM LEFT MESSAGE ASKING FOR RETURN CALL TO DISCUSS DISCHARGE PLAN. CM WAITING FAMILY TO CALL CM TO DISCUSS DISCHARGE HOME WITH HOSPICE. GEORGES MARIN, CASE MANAGEMENT DCP- Discharge Planning Updated by [id number]: Vaibhav Marin on 07/20/19 12:[address] Patient Name: SUMI MCKAY Encounter No: [id number] : 1945 Primary Insurance: [facility] MEDICARE SOLUTIONS Anticipated DC Date: 07-20-2019 Planned Disposition: Home with Hospice External Planned Provider: HOSPICE HOME CARE DCP follow-up note: CM RECEIVED HOSPICE CONSULT ORDER, MET WITH PT AND THREE DAUGHTERS IN ROOM. PT NOT RESPONSIVE TO CM; DAUGHTERS PRESENT WERE EDGAR MCKAY, DAVID MCKAY AND SPRING. ALL THREE DAUGHTERS HAVE MET WITH THE DOCTOR TODAY AND AGREE FOR HOSPICE CARE FOR PT. THEY PLAN TO TAKE PT TO HER OWN HOME LOCATED AT [address] [place] [address]. FAMILY WILL BE TAKING CARE OF PT AT HOME. THEY USED [facility] FOR THEIR FATHER AND WANT [facility], SECOND CHOICE IS HOSPICE HOME CARE. IMPORTANT MESSAGE FROM MEDICARE PROVIDED AND EXPLAINED. CHOICE FOR [facility] AND HOSPICE HOME CARE SIGNED. CM CALLED [facility], , SPOKE TO RENETTA AND WAS ADVISED THAT [facility] NOT [facility]. CM CALLED HOSPICE HOME CARE, , SPOKE TO DILSHAD WHO TOOK HOSPICE REFERRAL AND WILL CONTACT THEIR [place] OFFICE AND HAVE A NURSE COME AND MEET WITH FAMILY THIS AFTERNOON. CM ADVISED DILSHAD THAT PT CAN DISCHARGE HOME SOON HOSPICE ARRANGEMENTS AND EQUIPMENT ARE ARRANGED. CM FAXED REFERRAL TO HOSPICE HOME CARE AT [phone]. CM WAITING HOSPICE ACCEPTANCE AND HOME ARRANGEMENTS TO BE COMPLETED BY HOSPICE HOME CARE. WHEN HOSPICE ADVISES THAT ALL ARRANGEMENTS ARE COMPLETED TO RECEIVE PT AT HOME, OBTAIN DISCHARGE ORDERS AND FAX TO HOSPICE HOME CARE AT [phone]. PT TO TRANSPORT HOME VIA AMBULANCE FOR HOSPICE ADMISSION AFTER ARRIVAL AT HOME. Vaibhav Marin,. CASE MANAGEMENT DCP- Discharge Planning Updated by [id number]: Amy Jadyn on 07/17/19 4:[address] Patient Name: SUMI MCKAY Admission Status: Elective Accout number: [id number] Admission Date: 07-14-2019 : 1945 Admission Diagnosis: Attending: EDA GUERRA Current LOS: 3 Anticipated DC Date: Planned Disposition: Primary Insurance: [facility] MEDICARE SOLUTIONS Discharge Planning Comments: CM MET WITH PATIENT BUT IS VERY HARD TO UNDERSTAND BECAUSE OF THE SORES ON HER MOUTH. SHE DOES HAVE HH BUT DOESN'T KNOW WHO WITH AND HER [facility] LIVES WITH HER. CM WILL TALK TO [facility] WHEN SHE IS HERE. CM TO FOLLOW AND ASSIST. Airframe And Powerplant Mechanic: Amy Salamanca Coverage Notice Reviewer: [id number] Pippa Marin Notice Issued Date-Time: 07/20/2019 12:35 Notice Type: IM Discharge Notice Notice Delivered To: Family Member Relationship to Patient: Daughter Entry Examiner Name: EDGAR MCKAY Delivery Method: HAND - Hand Delivered Marilee Days: Prior Verbal Notification: Recipient Understood Notice: Yes Recipient Signature: Yes Med Rec Note Co-signed by Attending: Coverage Notice Comment: Reviewer: [id number] Pippa Marin Notice Issued Date-Time: 07/20/2019 12:35 Notice Type: Patient Choice Letter Notice Delivered To: Family Member Relationship to Patient: Daughter Entry Examiner Name: EDGAR MCKAY Delivery Method: HAND - Hand Delivered Marilee Days: Prior Verbal Notification: Recipient Understood Notice: Yes Recipient Signature: Yes Med Rec Note Co-signed by Attending: Coverage Notice Comment: 1- [facility] / 2 - HOSPICE HOME CARE Last DP export: 07/20/19 2:11 p Patient Name: SUMI MCKAY Page 40262 at 1639 All edits/amendments must be made on the electronic document DICTATION DATE: 07/20/191637 CALENDER RUNNER: EUNICE 07/20/191637 RPT#: [id number] DC DATE: STATUS: ADM IN [facility] [address] [place] [address] END OF REPORT
--- NOTE | 2019-07-20 19:20 | NUR ---
PT RESTING COMFORTABLY IN BED. RR EVEN AND UNLABORED. NO S/S OF DISTRESS. PT VITALS STABLE AT THIS TIME. PT TURNED TO LEFT SIDE. WILL CONTINUE TO MONITOR.
[2019-07-20 20:00] VITALS: BP 97/29
--- NOTE | 2019-07-21 03:38 | NUR ---
PT CRYING AND COMPLAING OF PAIN 8/10 GENERALIZED. PRN PAIN MEDICATION GIVEN. RR EVEN AND UNLABORED. BED LOW CALL LIGHT WITHIN REACH. WILL CONTINUE TO MONITOR.
--- NOTE | 2019-07-21 04:00 | NUR ---
I have reviewed this patient and I concur with the Shift Assessment completed by the Licensed Practical Nurse today this shift.
--- NOTE | 2019-07-21 04:42 | NUR ---
PT RESTING IN BED WITH EYES CLOSED. RR EVEN AND UNLABORED. PT RUNNING 73 PACED ON TELE. PT TURNED TO RIGHT SIDE. BED LOW CALL LIGHT WITHIN REACH. WILL CONTINUE TO MONITOR.
[2019-07-21 06:30] LABS: ANION GAP 20.9 mmol/L (8-16); CALCIUM 9.2 mg/dL (8.5-10.1); CARBON DIOXIDE 18.8 mmol/L (21.0-32.0); CREATININE - SERUM 8.6 mg/dL (0.6-1.3); POTASSIUM - SERUM 5.7 mmol/L (3.5-5.1)
[2019-07-21 06:42] LABS: HEMATOCRIT 33.2 % (36.0-48.0); HEMOGLOBIN 10.8 g/dL (12-16); MCH 29.8 pg (26.0-34.0); MCHC 32.5 g/dL (31.0-37.0); MCV 91.7 fL (80.0-100.0); PLATELET COUNT 646 10x3/uL (130-400); RBC 3.62 10x6/uL (4.00-5.40); RDW 19.2 % (11.5-14.5); WBC 27.2 10x3/uL (4.8-10.8)
[2019-07-21 07:23] LABS: LYMPHOCYTES 4 % (15-50); MONOCYTES 20 % (2-11); NEUTROPHILS 73 % (40-80); PLATELET ESTIMATE INCREASED
[2019-07-21 08:00] VITALS: BP 129/48
--- NOTE | 2019-07-21 12:55 | NUR ---
COMFORT CRE CONT. REPOSITIONED NEEDED. WILL CONT. PLAN OF CARE.
--- NOTE | 2019-07-21 13:14 | MORECARE ---
CASE MANAGEMENT DISCHARGE SUMMARY PATIENT: SUMI MCKAY UNIT: [id number] ADM DATE: 07/14/19 AGE: 74 : 43 SEX: F ROOM/BED: D.9212 AUTHOR: SANDIP,DOC PHYSICIAN: REFERRING PHYSICIAN: EDA GUERRA MD DATE OF SERVICE: 07/21/19 Discharge Plan Patient Name: SUMI MCKAY Facility: [facility]:[place] : 1945 Planned Disposition: Home with Hospice Anticipated Discharge Date: 07/22/19 Discharge Date: Expected LOS: 8 Initial Reviewer: [id number] Initial Review Date: 07/17/2019 Generated: 07/21/19 2:14 pm Comments DCP- Discharge Planning Updated by [id number]: Vaibhav Marin on 07/21/19 12:[address] Patient Name: SUMI MCKAY Encounter No: [id number] : 1945 Primary Insurance: [facility] MEDICARE SOLUTIONS Anticipated DC Date: 07-22-2019 Planned Disposition: Home with Hospice External Planned Provider: HOSPICE HOMECARE DCP follow-up note: CM CALLED EDGAR MCKAY, PRIMARY CONTACT, , WHO INFORMED CM THAT ALL MEDICAL EQUIPMENT HAS BEEN DELIVERED TO THE HOME AND THEY WILL NOT HAVE CAREGIVERS ARRANGED FOR PT UNTIL IN THE MORNING AND REQUESTED THAT PT BE SENT HOME FIRST THING IN THE MORNING. CM NOTIFIED JEREMIAS OF HOSPICE HOME CARE, . BEATRIZ WAGNER NOTIFIED. FOR DISCHARGE FIRST THING IN THE MORNING 07-22-19, FAX TO HOSPICE HOME CARE AT [phone]. NOTIFY HOSPICE HOME CARE OF DISCHARGE AT [phone]. PT TO TRANSPORT HOME VIA AMBULANCE FOR HOSPICE ADMISSION AFTER ARRIVAL AT HOME. Vaibhav Marin. CASE MANAGEMENT DCP- Discharge Planning Updated by [id number]: Vaibhav Marin on 07/20/19 3:[address] Patient Name: SUMI MCKAY Encounter No: [id number] : 1945 Primary Insurance: [facility] MEDICARE SOLUTIONS Anticipated DC Date: 07-21-2019 Planned Disposition: Home with Hospice External Planned Provider: HOSPICE HOME CARE DCP follow-up note: CM SPOKE TO MEGHAN OF HOME CARE, THEY WILL ACCEPT PT FOR HOME HOSPICE AND WILL HAVE ALL EQUIPMENT DELIVERED FOR HOME BY TOMORROW, 07-21-19. FAMILY IN AGREEMENT WITH PLAN AND HAVE SIGNED LEGALS FOR HOSPICE HOME CARE SERVICES. DILSHAD OF THE [facility] TO CALL CM AND CONFIRM DELIVERY OF MEDICAL EQUIPMENT TO RECEIVE AND ADMIT PT FOR HOME HOSPICE. CM WAITING HOME EQUIPMENT ARRANGEMENTS TO BE COMPLETED BY HOSPICE HOME CARE 07-21-19. WHEN HOSPICE ADVISES THAT ALL ARRANGEMENTS ARE COMPLETED TO RECEIVE PT AT HOME, OBTAIN DISCHARGE ORDERS AND FAX TO HOSPICE HOME CARE AT [phone]. NOTIFY HOSPICE HOME CARE OF DISCHARGE AT [phone]. PT TO TRANSPORT HOME VIA AMBULANCE FOR HOSPICE ADMISSION AFTER ARRIVAL AT HOME. Vaibhav Marin,. CASE MANAGEMENT Appended by Vaibhav Marin on 07/20/2019 16:32 CDT: CM RECEIVED CALL FROM JEREMIAS OF HOSPICE HOME CARE, ; THEIR MEDICAL EQUIPMENT PERSON CALLED FAMILY TO ARRANGE MEDICAL EQUIPMENT AND WAS INFORMED BY A FAMILY MEMBER THAT PT WILL NOT DISCHARGE HOME UNTIL SATURDAY. CM REVIEWED CHART WHICH HAD NO INDICATIONS OF THIS FACT AND NOTES THAT HOSPICE IS BEING ARRANGED FOR PT'S DISCHARGE HOME. BOB INFORMED CM THAT IT IS FAMILY TELLING THEM PT WILL NOT DISCHARGE UNTIL AND ASSURED CM THAT THEY CAN DELIVER MEDICAL EQUIPMENT PRIOR TO THEN WITH FAMILY COOPERATION. CM ATTEMPTED TO SEE FAMILY IN ROOM, THEY ARE NOT THERE. CM CALLED EDGAR MCKAY, PRIMARY CONTACT, , THERE WAS NO ANSWER, CM LEFT MESSAGE ASKING FOR RETURN CALL TO DISCUSS DISCHARGE PLAN. CM WAITING FAMILY TO CALL CM TO DISCUSS DISCHARGE HOME WITH HOSPICE. GEORGES MARIN, CASE MANAGEMENT DCP- Discharge Planning Updated by [id number]: Vaibhav Marin on 07/20/19 12:[address] Patient Name: SUMI MCKAY Encounter No: [id number] : 1945 Primary Insurance: [facility] MEDICARE SOLUTIONS Anticipated DC Date: 07-20-2019 Planned Disposition: Home with Hospice External Planned Provider: HOSPICE HOME CARE DCP follow-up note: CM RECEIVED HOSPICE CONSULT ORDER, MET WITH PT AND THREE DAUGHTERS IN ROOM. PT NOT RESPONSIVE TO CM; DAUGHTERS PRESENT WERE EDGAR MCKAY, DAVID MCKAY AND SPRING. ALL THREE DAUGHTERS HAVE MET WITH THE DOCTOR TODAY AND AGREE FOR HOSPICE CARE FOR PT. THEY PLAN TO TAKE PT TO HER OWN HOME LOCATED AT [address] [place] [address]. FAMILY WILL BE TAKING CARE OF PT AT HOME. THEY USED [facility] FOR THEIR FATHER AND WANT [facility]ICE, SECOND CHOICE IS HOSPICE HOME CARE. IMPORTANT MESSAGE FROM MEDICARE PROVIDED AND EXPLAINED. CHOICE FOR [facility] AND HOSPICE HOME CARE SIGNED. CM CALLED [facility], , SPOKE TO RENETTA AND WAS ADVISED THAT [facility] NOT [facility]. CM CALLED HOSPICE HOME CARE, , SPOKE TO DILSHAD WHO TOOK HOSPICE REFERRAL AND WILL CONTACT THEIR [place] OFFICE AND HAVE A NURSE COME AND MEET WITH FAMILY THIS AFTERNOON. CM ADVISED DILSHAD THAT PT CAN DISCHARGE HOME SOON HOSPICE ARRANGEMENTS AND EQUIPMENT ARE ARRANGED. CM FAXED REFERRAL TO HOSPICE HOME CARE AT [phone]. CM WAITING HOSPICE ACCEPTANCE AND HOME ARRANGEMENTS TO BE COMPLETED BY HOSPICE HOME CARE. WHEN HOSPICE ADVISES THAT ALL ARRANGEMENTS ARE COMPLETED TO RECEIVE PT AT HOME, OBTAIN DISCHARGE ORDERS AND FAX TO HOSPICE HOME CARE AT [phone]. PT TO TRANSPORT HOME VIA AMBULANCE FOR HOSPICE ADMISSION AFTER ARRIVAL AT HOME. Vaibhav Marin,. CASE MANAGEMENT DCP- Discharge Planning Updated by [id number]: Aym Salamanca on 07/17/19 4:[address] Patient Name: SUMI MCKAY Admission Status: Elective Accout number: [id number] Admission Date: 07-14-2019 : 1945 Admission Diagnosis: Attending: EDA GUERRA Current LOS: 3 Anticipated DC Date: Planned Disposition: Primary Insurance: [facility] MEDICARE SOLUTIONS Discharge Planning Comments: CM MET WITH PATIENT BUT IS VERY HARD TO UNDERSTAND BECAUSE OF THE SORES ON HER MOUTH. SHE DOES HAVE HH BUT DOESN'T KNOW WHO WITH AND HER GRANDAUGHTER LIVES WITH HER. CM WILL TALK TO [facility] WHEN SHE IS HERE. CM TO FOLLOW AND ASSIST. Docent Coordinator: Amy Salamanca Coverage Notice Reviewer: [id number] - Vaibhav Marin Notice Issued Date-Time: 07/20/2019 12:35 Notice Type: IM Discharge Notice Notice Delivered To: Family Member Relationship to Patient: Daughter Scratch Polisher Name: EDGAR MCKAY Delivery Method: HAND - Hand Delivered Marilee Days: Prior Verbal Notification: Recipient Understood Notice: Yes Recipient Signature: Yes Med Rec Note Co-signed by Attending: Coverage Notice Comment: Reviewer: [id number] - Vaibhav Marin Notice Issued Date-Time: 07/20/2019 12:35 Notice Type: Patient Choice Letter Notice Delivered To: Family Member Relationship to Patient: Daughter Scratch Polisher Name: EDGAR MCKAY Delivery Method: HAND - Hand Delivered Marilee Days: Prior Verbal Notification: Recipient Understood Notice: Yes Recipient Signature: Yes Med Rec Note Co-signed by Attending: Coverage Notice Comment: 1- [facility] / 2 - HOSPICE HOME CARE Last DP export: 07/20/19 3:39 p Patient Name: SUMI MCKAY Page 13792 at 1314 All edits/amendments must be made on the electronic document DICTATION DATE: 07/21/191312 RAMP SERVICE EMPLOYEE: EUNICE 07/21/191312 RPT#: [id number] DC DATE: STATUS: ADM IN [facility] [address] [place] [address] END OF REPORT
--- NOTE | 2019-07-21 19:40 | NUR ---
RECIEVED REPORT FROM SYLVIA CASTANO AT BEDSIDE. PT IS RESTING COMFORTABLY IN BED WITH EYES CLOSED. RR EVEN AND UNLABORED AT THIS TIME. PT RUNNING 73 SR ON TELE. BED LOW CALL LIGHT WITHIN REACH WILL CONTINUE TO MONITOR.
[2019-07-21 20:22] VITALS: BP 132/57
--- NOTE | 2019-07-21 22:37 | NUR ---
PT FAMILY MEMBER DAVID CAME BY TO [facility] RN [facility] PAPER WORK.
--- NOTE | 2019-07-22 02:57 | NUR ---
PT RESTING IN BED COMFORTABLY WITH EYES CLOSED. RR-24 NO S/S AND SYMPTOMS OF DISTRESS. BED LOW CALL LIGHT WITHIN REACH. WILL CONTIUE TO MONITOR. PT RECIEVING COMFORT CARE.
--- NOTE | 2019-07-22 06:03 | NUR ---
PT IN PAIN AFTER BEING CLEANED UP. PRN PAIN MEDICATION GIVEN. PT RESTING COMFORTABLY AT THIS TIME. RR EVEN AND UNLABORED. BED LOW CALL LIGHT WITHIN REACH. WILL CONTINUE TO MONITOR.
--- NOTE | 2019-07-22 07:15 | NUR ---
PT RESTING IN BED, SHIFT ASSESSMENT PERFORMED. NO SIGNS OF DISTRESS NOTED AT THIS TIME, WILL CONT TO FOLLOW POC
[2019-07-22 08:20] VITALS: BP 139/27
--- NOTE | 2019-07-22 08:24 | MORECARE ---
CASE MANAGEMENT DISCHARGE SUMMARY PATIENT: SUMI MCKAY UNIT: [id number] ADM DATE: 07/14/19 AGE: 74 : 43 SEX: F ROOM/BED: D.9139 AUTHOR: SANDIP,DOC PHYSICIAN: REFERRING PHYSICIAN: EDA GUERRA MD DATE OF SERVICE: 07/22/19 Discharge Plan Patient Name: SUMI MCKAY Facility: [facility]:[place] : 1945 Planned Disposition: Home with Hospice Anticipated Discharge Date: 07/22/19 Discharge Date: Expected LOS: 8 Initial Reviewer: [id number] Initial Review Date: 07/17/2019 Generated: 07/22/19 9:24 am Comments DCP- Discharge Planning Updated by [email or web address]: Vaibhav Marin on 07/22/19 7:[address] Patient Name: SUMI MCKAY Encounter No: [id number] : 1945 Primary Insurance: [facility] MEDICARE SOLUTIONS Anticipated DC Date: 07-22-2019 Planned Disposition: Home with Hospice External Planned Provider: [facility] DCP follow-up note: CM CALLED EDGAR MCKAY, PRIMARY CONTACT, , SHE WILL BE HOME ALL DAY TO RECEIVE PT TODAY FOR HOSPICE CARE. FOR DISCHARGE FAX TO HOSPICE HOME CARE T [phone]. NOTIFY HOSPICE HOME CARE OF DISCHARGE AT [phone]. PT TO TRANSPORT HOME VIA AMBULANCE FOR HOSPICE ADMISSION AFTER ARRIVAL AT HOME. Vaibhav Marin,. CASE MANAGEMENT DCP- Discharge Planning Updated by [id number]: Vaibhav Marin on 07/21/19 12:[address] Patient Name: SUMI MCKAY Encounter No: [id number] : 1945 Primary Insurance: [facility] MEDICARE SOLUTIONS Anticipated DC Date: 07-22-2019 Planned Disposition: Home with Hospice External Planned Provider: [facility] DCP follow-up note: CM CALLED EDGAR MCKYA, PRIMARY CONTACT, , WHO INFORMED CM THAT ALL MEDICAL EQUIPMENT HAS BEEN DELIVERED TO THE HOME AND THEY WILL NOT HAVE CAREGIVERS ARRANGED FOR PT UNTIL IN THE MORNING AND REQUESTED THAT PT BE SENT HOME FIRST THING IN THE MORNING. CM NOTIFIED JEREMIAS OF HOSPICE HOME CARE, . BEATRIZ WAGNER NOTIFIED. FOR DISCHARGE FIRST THING IN THE MORNING 07-22-19, FAX TO HOSPICE HOME CARE AT [phone]. NOTIFY HOSPICE HOME [facility] OF DISCHARGE AT [phone]. PT TO TRANSPORT HOME VIA AMBULANCE FOR HOSPICE ADMISSION AFTER ARRIVAL AT HOME. Lexie Bolanos CASE MANAGEMENT DCP- Discharge Planning Updated by [id number]: Vaibhav Marin on 07/20/19 3:[address] Patient Name: SUMI MCKAY Encounter No: [id number] : 1945 Primary Insurance: [facility] MEDIC[facility] SOLUTIONS Anticipated DC Date: 07-21-2019 Planned Disposition: Home with Hospice External Planned Provider: HOSPICE HOME CARE DCP follow-up note: CM SPOKE TO MEGHAN OF HOME CARE, THEY WILL ACCEPT PT FOR HOME HOSPICE AND WILL HAVE ALL EQUIPMENT DELIVERED FOR HOME BY TOMORROW, 07-21-19. FAMILY IN AGREEMENT WITH PLAN AND HAVE SIGNED LEGALS FOR HOSPICE HOME CARE SERVICES. DILSHAD OF [facility] TO CALL CM AND CONFIRM DELIVERY OF MEDICAL EQUIPMENT TO RECEIVE AND ADMIT PT FOR HOME HOSPICE. CM WAITING HOME EQUIPMENT ARRANGEMENTS TO BE COMPLETED BY HOSPICE HOME C[facility] 07-21-19. WHEN HOSPICE ADVISES THAT ALL ARRANGEMENTS ARE COMPLETED TO RECEIVE PT AT HOME, OBTAIN DISCHARGE ORDERS AND FAX TO HOSPICE HOME CARE AT [phone]. NOTIFY HOSPICE [facility] OF DISCHARGE AT [phone]. PT TO TRANSPORT HOME VIA AMBULANCE FOR HOSPICE ADMISSION AFTER ARRIVAL AT HOME. Lexie Bolanos CASE MANAGEMENT Appended by Vaibhav Marin on 07/20/2019 16:32 CDT: CM RECEIVED CALL FROM JEREMIAS OF HOSPICE HOME [facility], ; THEIR MEDICAL EQUIPMENT PERSON CALLED FAMILY TO ARRANGE MEDICAL EQUIPMENT AND WAS INFORMED BY A FAMILY MEMBER THAT PT WILL NOT DISCHARGE HOME UNTIL SATURDAY. CM REVIEWED CHART WHICH HAD NO INDICATIONS OF THIS FACT AND NOTES THAT HOSPICE IS BEING ARRANGED FOR PT'S DISCHARGE HOME. BOB INFORMED CM THAT IT IS FAMILY TELLING THEM PT WILL NOT DISCHARGE UNTIL THURSAY AND ASSURED CM THAT THEY CAN DELIVER MEDICAL EQUIPMENT PRIOR TO THEN WITH FAMILY COOPERATION. CM ATTEMPTED TO SEE FAMILY IN ROOM, THEY ARE NOT THERE. CM CALLED EDGAR MCKAY, PRIMARY CONTACT, , THERE WAS NO ANSWER, CM LEFT MESSAGE ASKING FOR RETURN CALL TO DISCUSS DISCHARGE PLAN. CM WAITING FAMILY TO CALL CM TO DISCUSS DISCHARGE HOME WITH HOSPICE. GEORGES MARIN, CASE MANAGEMENT DCP- Discharge Planning Updated by [id number]: Vaibhav Marin on 07/20/19 12:[address] Patient Name: SUMI MCKAY Encounter No: [id number] : 1945 Primary Insurance: [facility] MEDIC[facility] SOLUTIONS Anticipated DC Date: 07-20-2019 Planned Disposition: Home with Hospice External Planned Provider: HOSPICE HOME CARE DCP follow-up note: CM RECEIVED HOSPICE CONSULT ORDER, MET WITH PT AND THREE DAUGHTERS IN ROOM. PT NOT RESPONSIVE TO CM; DAUGHTERS PRESENT WERE EDGAR MCKAY, DAVID WOODY AND SPRING. ALL THREE DAUGHTERS HAVE MET WITH THE DOCTOR TODAY AND AGREE FOR HOSPICE CARE FOR PT. THEY PLAN TO TAKE PT TO HER OWN HOME LOCATED AT [address] [place] [address]. FAMILY WILL BE TAKING CARE OF PT AT HOME. THEY USED [facility] FOR THEIR FATHER AND WANT [facility] FIRST CHOICE, SECOND CHOICE IS HOSPICE HOME CARE. IMPORTANT MESSAGE FROM MEDICARE PROVIDED AND EXPLAINED. CHOICE FOR [facility] AND HOSPICE HOME CARE SIGNED. CM CALLED [facility], , SPOKE TO RENETTA AND WAS ADVISED THAT [facility] DOES NOT [facility]. CM CALLED HOSPICE HOME CARE, , SPOKE TO DILSHAD WHO TOOK HOSPICE REFERRAL AND WILL CONTACT THEIR [place] OFFICE AND HAVE A NURSE COME AND MEET WITH FAMILY THIS AFTERNOON. CM ADVISED DILSHAD THAT PT CAN DISCHARGE HOME SOON HOSPICE ARRANGEMENTS AND EQUIPMENT ARE ARRANGED. CM FAXED REFERRAL TO HOSPICE HOME CARE AT [phone]. CM WAITING HOSPICE ACCEPTANCE AND HOME ARRANGEMENTS TO BE COMPLETED BY HOSPICE HOME CARE. WHEN HOSPICE ADVISES THAT ALL ARRANGEMENTS ARE COMPLETED TO RECEIVE PT AT HOME, OBTAIN DISCHARGE ORDERS AND FAX TO HOSPICE HOME CARE AT [phone]. PT TO TRANSPORT HOME VIA AMBULANCE FOR HOSPICE ADMISSION AFTER ARRIVAL AT HOME. Vaibhav Marin,. CASE MANAGEMENT DCP- Discharge Planning Updated by [id number]: Amy Salamanca on 07/17/19 4:[address] Patient Name: SUMI MCKAY Admission Status: Elective Accout number: [id number] Admission Date: 07-14-2019 : 1945 Admission Diagnosis: Attending: EDA GUERRA Current LOS: 3 Anticipated DC Date: Planned Disposition: Primary Insurance: [facility] MEDICARE SOLUTIONS Discharge Planning Comments: CM MET WITH PATIENT BUT IS VERY HARD TO UNDERSTAND BECAUSE OF THE SORES ON HER MOUTH. SHE DOES HAVE HH BUT DOESN'T KNOW WHO WITH AND HER GRANDAUMOLLY LIVES WITH HER. CM WILL TALK TO [facility] WHEN SHE IS HERE. CM TO FOLLOW AND ASSIST. Speech Lang Path Therapist: Amy Salamanca Coverage Notice Reviewer: [id number] Marin Notice Issued Date-Time: 07/20/2019 12:35 Notice Type: IM Discharge Notice Notice Delivered To: Family Member Relationship to Patient: Daughter Bar Captain Name: EDGAR MCKAY Delivery Method: HAND - Hand Delivered Marilee Days: Prior Verbal Notification: Recipient Understood Notice: Yes Recipient Signature: Yes Med Rec Note Co-signed by Attending: Coverage Notice Comment: Reviewer: GERHARD Marin Notice Issued Date-Time: 07/20/2019 12:35 Notice Type: Patient Choice Letter Notice Delivered To: Family Member Relationship to Patient: Daughter Bar Captain Name: EDGAR MCKAY Delivery Method: HAND - Hand Delivered Marilee Days: Prior Verbal Notification: Recipient Understood Notice: Yes Recipient Signature: Yes Med Rec Note Co-signed by Attending: Coverage Notice Comment: 1- [facility] / 2 - HOSPICE HOME [facility] Last DP export: 07/21/19 12:14 p Patient Name: SUMI MCKAY Page [id number] at 0824 All edits/amendments must be made on the electronic document DICTATION DATE: 07/22/19823 SET UP PERSON: EUNICE 07/22/19823 RPT#: [id number] DC DATE: STATUS: ADM IN [facility] [address] [place] [address] END OF REPORT
--- NOTE | 2019-07-22 11:30 | NUR ---
PT RESTING IN BED MOANING. PRN DIALUDID GIVEN. CALL LIGHT WITHIN REACH, RIKKI ALARM ON AND TESTED. WILL CONT TO FOLLOW POC
--- NOTE | 2019-07-22 12:26 | NUR ---
Nutrition Follow-up: Noted pt to be d/c'd with hospice today. Procalamine d/c'd 07/20. Diet: NPO No new wt Labs reviewed Meds reviewed RD following
--- NOTE | 2019-07-22 16:41 | MORECARE ---
CASE MANAGEMENT DISCHARGE SUMMARY PATIENT: SUMI MCKAY UNIT: [id number] ADM DATE: 07/14/19 AGE: 74 : 43 SEX: F ROOM/BED: D.1019 AUTHOR: SANDIP,DOC PHYSICIAN: REFERRING PHYSICIAN: EDA GUERRA MD DATE OF SERVICE: 07/22/19 Discharge Plan Patient Name: SUMI MCKAY Facility: [facility]:[place] : 1945 Planned Disposition: Home with Hospice Anticipated Discharge Date: 07/22/19 Discharge Date: Expected LOS: 8 Initial Reviewer: [id number] Initial Review Date: 07/17/2019 Generated: 07/22/19 5:40 pm Comments DCP- Discharge Planning Updated by [id number]: Vaibhav Marin on 07/22/19 7:[address] Patient Name: SUMI MCKAY Encounter No: [id number] : 1945 Primary Insurance: [facility] MEDICARE SOLUTIONS Anticipated DC Date: 07-22-2019 Planned Disposition: Home with Hospice External Planned Provider: [facility]OSPICE HOM[facility] DCP follow-up note: CM CALLED EDGAR MCKAY, PRIMARY CONTACT, , SHE WILL BE HOME ALL DAY TO RECEIVE PT TODAY FOR HOSPICE CARE. FOR DISCHARGE FAX TO HOSPICE HOME CARE T [phone]. NOTIFY HOSPICE HOME CARE OF DISCHARGE AT [phone]. PT TO TRANSPORT HOME VIA AMBULANCE FOR HOSPICE ADMISSION AFTER ARRIVAL AT HOME. Vaibhav Marin,. CASE MANAGEMENT DCP- Discharge Planning Updated by [id number]: Vaibhav Marin on 07/21/19 12:[address] Patient Name: SUMI MCKAY Encounter No: [id number] : 1945 Primary Insurance: [facility] MEDICARE SOLUTIONS Anticipated DC Date: 07-22-2019 Planned Disposition: Home with Hospice External Planned Provider: [facility] DCP follow-up note: CM CALLED EDGAR MCKAY, PRIMARY CONTACT, , WHO INFORMED CM THAT ALL MEDICAL EQUIPMENT HAS BEEN DELIVERED TO THE HOME AND THEY WILL NOT HAVE CAREGIVERS ARRANGED FOR PT UNTIL IN THE MORNING AND REQUESTED THAT PT BE SENT HOME FIRST THING IN THE MORNING. CM NOTIFIED JEREMIAS OF HOSPICE HOME CARE, . BEATRIZ WAGNER NOTIFIED. FOR DISCHARGE FIRST THING IN THE MORNING 07-22-19, FAX TO HOSPICE HOME CARE AT [phone]. NOTIFY HOSPICE [facility] OF DISCHARGE AT [phone]. PT TO TRANSPORT HOME VIA AMBULANCE FOR HOSPICE ADMISSION AFTER ARRIVAL AT HOME. Lexie Bolanos CASE MANAGEMENT DCP- Discharge Planning Updated by [id number]: Vaibhav Marin on 07/20/19 3:[address] Patient Name: SUMI MCKAY Encounter No: [id number] : 1945 Primary Insurance: [facility] MEDICARE SOLUTIONS Anticipated DC Date: 07-21-2019 Planned Disposition: Home with Hospice External Planned Provider: HOSPICE HOME CARE DCP follow-up note: CM SPOKE TO [facility]AN OF HOME CARE, THEY WILL ACCEPT PT FOR HOME HOSPICE AND WILL HAVE ALL EQUIPMENT DELIVERED FOR HOME BY TOMORROW, 07-21-19. FAMILY IN AGREEMENT WITH PLAN AND HAVE SIGNED LEGALS FOR HOSPICE HOME CARE SERVICES. [facility]SHAD [facility] TO CALL CM AND CONFIRM DELIVERY OF MEDICAL EQUIPMENT TO RECEIVE AND ADMIT PT FOR HOME HOSPICE. CM WAITING HOME EQUIPMENT ARRANGEMENTS TO BE COMPLETED BY HOSPICE HOME C[facility] 07-21-19. WHEN HOSPICE ADVISES THAT ALL ARRANGEMENTS ARE COMPLETED TO RECEIVE PT AT HOME, OBTAIN DISCHARGE ORDERS AND FAX TO HOSPICE HOME CARE AT [phone]. NOTIFY HOSPICE [facility] OF DISCHARGE AT [phone]. PT TO TRANSPORT HOME VIA AMBULANCE FOR HOSPICE ADMISSION AFTER ARRIVAL AT HOME. Lexie Bolanos CASE MANAGEMENT Appended by Vaibhav Marin on 07/20/2019 16:32 CDT: CM RECEIVED CALL FROM JEREMIAS OF [facility]OS[facility]ICE [facility], ; THEIR MEDICAL EQUIPMENT PERSON CALLED FAMILY TO ARRANGE MEDICAL EQUIPMENT AND WAS INFORMED BY A FAMILY MEMBER THAT PT WILL NOT DISCHARGE HOME UNTIL SATURDAY. CM REVIEWED CHART WHICH HAD NO INDICATIONS OF THIS FACT AND NOTES THAT HOSPICE IS BEING ARRANGED FOR PT'S DISCHARGE HOME. BOB INFORMED CM THAT IT IS FAMILY TELLING THEM PT WILL NOT DISCHARGE UNTIL THURSAY AND ASSURED CM THAT THEY CAN DELIVER MEDICAL EQUIPMENT PRIOR TO THEN WITH FAMILY COOPERATION. CM ATTEMPTED TO SEE FAMILY IN ROOM, THEY ARE NOT THERE. CM CALLED EDGAR MCKAY, PRIMARY CONTACT, , THERE WAS NO ANSWER, CM LEFT MESSAGE ASKING FOR RETURN CALL TO DISCUSS DISCHARGE PLAN. CM WAITING FAMILY TO CALL CM TO DISCUSS DISCHARGE HOME WITH HOSPICE. GEORGES MARIN, CASE MANAGEMENT DCP- Discharge Planning Updated by [id number]: Vaibhav Marin on 07/20/19 12:[address] Patient Name: SUMI MCKAY Encounter No: [id number] : 1945 Primary Insurance: [facility] MEDICARE SOLUTIONS Anticipated DC Date: 07-20-2019 Planned Disposition: Home with Hospice External Planned Provider: HOSPICE HOME CARE DCP follow-up note: CM RECEIVED HOSPICE CONSULT ORDER, MET WITH PT AND THREE DAUGHTERS IN ROOM. PT NOT RESPONSIVE TO CM; DAUGHTERS PRESENT WERE EDGAR MCKAY, DAVID WOODY AND SPRING. ALL THREE DAUGHTERS HAVE MET WITH THE DOCTOR TODAY AND AGREE FOR HOSPICE CARE FOR PT. THEY PLAN TO TAKE PT TO HER OWN HOME LOCATED AT [address] [place] [address]. FAMILY WILL BE TAKING CARE OF PT AT HOME. THEY USED [facility] FOR THEIR FATHER AND WANT [facility] FIRST CHOICE, SECOND CHOICE IS HOSPICE HOME CARE. IMPORTANT MESSAGE FROM MEDICARE PROVIDED AND EXPLAINED. CHOICE FOR [facility] AND HOSPICE HOME C[facility] SIGNED. CM CALLED [facility], , SPOKE TO RENETTA AND WAS ADVISED THAT [facility] NOT [facility]. CM CALLED HOSPICE HOME CARE, , SPOKE TO DILSHAD WHO TOOK HOSPICE REFERRAL AND WILL CONTACT THEIR [place] OFFICE AND HAVE A NURSE COME AND MEET WITH FAMILY THIS AFTERNOON. CM ADVISED DILSHAD THAT PT CAN DISCHARGE HOME SOON HOSPICE ARRANGEMENTS AND EQUIPMENT ARE ARRANGED. CM FAXED REFERRAL TO HOSPICE HOME CARE AT [phone]. CM WAITING HOSPICE ACCEPTANCE AND HOME ARRANGEMENTS TO BE COMPLETED BY HOSPICE HOME CARE. WHEN HOSPICE ADVISES THAT ALL ARRANGEMENTS ARE COMPLETED TO RECEIVE PT AT HOME, OBTAIN DISCHARGE ORDERS AND FAX TO HOSPICE HOME CARE AT [phone]. PT TO TRANSPORT HOME VIA AMBULANCE FOR HOSPICE ADMISSION AFTER ARRIVAL AT HOME. Vaibhav Marin,. CASE MANAGEMENT DCP- Discharge Planning Updated by [id number]: Amy Salamanca on 07/17/19 4:[address] Patient Name: SUMI MCKAY Admission Status: Elective Accout number: [id number] Admission Date: 07-14-2019 : 1945 Admission Diagnosis: Attending: EDA GUERRA Current LOS: 3 Anticipated DC Date: Planned Disposition: Primary Insurance: [employer] MEDICARE SOLUTIONS Discharge Planning Comments: CM MET WITH PATIENT BUT IS VERY HARD TO UNDERSTAND BECAUSE OF THE SORES ON HER MOUTH. SHE DOES HAVE HH BUT DOESN'T KNOW WHO WITH AND HER GRANDAUNETOTER LIVES WITH HER. CM WILL TALK TO [facility] WHEN SHE IS HERE. CM TO FOLLOW AND ASSIST. Gritting Machine Operator: Amy Salamanca Coverage Notice Reviewer: [id number] Marin Notice Issued Date-Time: 07/20/2019 12:35 Notice Type: IM Discharge Notice Notice Delivered To: Family Member Relationship to Patient: Daughter Burling And Joining Supervisor Name: EDGAR MCKAY Delivery Method: HAND - Hand Delivered Marilee Days: Prior Verbal Notification: Recipient Understood Notice: Yes Recipient Signature: Yes Med Rec Note Co-signed by Attending: Coverage Notice Comment: Reviewer: GERHARD Marin Notice Issued Date-Time: 07/20/2019 12:35 Notice Type: Patient Choice Letter Notice Delivered To: Family Member Relationship to Patient: Daughter Burling And Joining Supervisor Name: EDGAR MCKAY Delivery Method: HAND - Hand Delivered Marilee Days: Prior Verbal Notification: Recipient Understood Notice: Yes Recipient Signature: Yes Med Rec Note Co-signed by Attending: Coverage Notice Comment: 1- [facility] / 2 - [facility]ICE HOME [facility] Last DP export: 07/22/19 7:24 a Patient Name: SUMI MCKAY Page [id number] at 1641 All edits/amendments must be made on the electronic document DICTATION DATE: 07/22/19 1640 RESEARCH LABORATORY MANAGER: EUNICE 07/22/19 1640 RPT#: [id number] DC DATE: STATUS: ADM IN [facility] [address] [place] [address] END OF REPORT
--- NOTE | 2019-07-22 16:53 | MORECARE ---
CASE MANAGEMENT DISCHARGE SUMMARY PATIENT: SUMI MCKAY UNIT: [id number] ADM DATE: 07/14/19 AGE: 74 : 43 SEX: F ROOM/BED: D.3773 AUTHOR: SANDIP,DOC PHYSICIAN: REFERRING PHYSICIAN: EDA GUERRA MD DATE OF SERVICE: 07/22/19 Discharge Plan Patient Name: SUMI MCKAY Facility: [facility]:[place] : 1945 Planned Disposition: Home with Hospice Anticipated Discharge Date: 07/22/19 Discharge Date: Expected LOS: 8 Initial Reviewer: [id number] Initial Review Date: 07/17/2019 Generated: 07/22/19 5:53 pm Comments DCP- Discharge Planning Updated by [id number]: Vaibhav Marin on 07/22/19 3:[address] Patient Name: SUMI MCKAY Encounter No: [id number] : 1945 Primary Insurance: [facility] MEDICARE SOLUTIONS Anticipated DC Date: 07-22-2019 Planned Disposition: Home with Hospice External Planned Provider: HOSPICE HOME CARE DCP follow-up note: CM FAXED DISCHARGE INFORMATION TO HOSPICE HOME CARE T [phone]. NOTIFY HOSPICE HOME CARE OF DISCHARGE AT [phone]. PT TO TRANSPORT HOME VIA AMBULANCE FOR HOSPICE ADMISSION AFTER ARRIVAL AT HOME. Lexie Bolanos CASE MANAGEMENT DCP- Discharge Planning Updated by [id number]: Vaibhav Marin on 07/22/19 7:[address] Patient Name: SUMI MCKAY Encounter No: [id number] : 1945 Primary Insurance: C MEDICARE SOLUTIONS Anticipated DC Date: 07-22-2019 Planned Disposition: Home with Hospice External Planned Provider: [facility]OSPICE HOMEC[facility] DCP follow-up note: CM CALLED EDGAR MCKAY, PRIMARY CONTACT, , SHE WILL BE HOME ALL DAY TO RECEIVE PT TODAY FOR HOSPICE CARE. FOR DISCHARGE FAX TO HOSPICE HOME CARE T [phone]. NOTIFY HOSPICE HOME CARE OF DISCHARGE AT [phone]. PT TO TRANSPORT HOME VIA AMBULANCE FOR HOSPICE ADMISSION AFTER ARRIVAL AT HOME. Lexie Bolanos CASE MANAGEMENT DCP- Discharge Planning Updated by [id number]: Vaibhav Marin on 07/21/19 12:[address] Patient Name: SUMI MCKAY Encounter No: [id number] : 1945 Primary Insurance: [facility] MEDICARE SOLUTIONS Anticipated DC Date: 07-22-2019 Planned Disposition: Home with Hospice External Planned Provider: [facility]OSPICE [facility]OM[facility] DCP follow-up note: CM CALLED EDGAR MCKAY, PRIMARY CONTACT, , WHO INFORMED CM THAT ALL MEDICAL EQUIPMENT HAS BEEN DELIVERED TO THE HOME AND THEY WILL NOT HAVE CAREGIVERS ARRANGED FOR PT UNTIL IN THE MORNING AND REQUESTED THAT PT BE SENT HOME FIRST THING IN THE MORNING. CM NOTIFIED JEREMIAS OF HOSPICE HOME CARE, . BEATRIZ WAGNER NOTIFIED. FOR DISCHARGE FIRST THING IN THE MORNING 07-22-19, FAX TO HOSPICE HOME CARE AT [phone]. NOTIFY HOSPICE [facility] OF DISCHARGE AT [phone]. PT TO TRANSPORT HOME VIA AMBULANCE FOR HOSPICE ADMISSION AFTER ARRIVAL AT HOME. Lexie Bolanos CASE MANAGEMENT DCP- Discharge Planning Updated by [id number]: Vaibhav Marin on 07/20/19 3:[address] Patient Name: SUMI MCKAY Encounter No: [id number] : 1945 Primary Insurance: [facility] MEDICARE SOLUTIONS Anticipated DC Date: 07-21-2019 Planned Disposition: Home with Hospice External Planned Provider: HOSPICE HOME CARE DCP follow-up note: CM SPOKE TO ME[facility]AN OF HOME CARE, THEY WILL ACCEPT PT FOR HOME HOSPICE AND WILL HAVE ALL EQUIPMENT DELIVERED FOR HOME BY TOMORROW, 07-21-19. FAMILY IN AGREEMENT WITH PLAN AND HAVE SIGNED LEGALS FOR HOSPICE HOME CARE SERVICES. DILSHAD OF [facility] TO CALL CM AND CONFIRM DELIVERY OF MEDICAL EQUIPMENT TO RECEIVE AND ADMIT PT FOR HOME HOSPICE. CM WAITING HOME EQUIPMENT ARRANGEMENTS TO BE COMPLETED BY HOSPICE HOME CARE 07-21-19. WHEN HOSPICE ADVISES THAT ALL ARRANGEMENTS ARE COMPLETED TO RECEIVE PT AT HOME, OBTAIN DISCHARGE ORDERS AND FAX TO HOSPICE HOME CARE AT [phone]. NOTIFY HOSPICE HOME C[facility] OF DISCHARGE AT [phone]. PT TO TRANSPORT HOME VIA AMBULANCE FOR HOSPICE ADMISSION AFTER ARRIVAL AT HOME. Lexie Bolanos CASE MANAGEMENT Appended by Vaibhav Marin on 07/20/2019 16:32 CDT: CM RECEIVED CALL FROM JEREMIAS OF HOSPICE HOME [facility], ; THEIR MEDICAL EQUIPMENT PERSON CALLED FAMILY TO ARRANGE MEDICAL EQUIPMENT AND WAS INFORMED BY A FAMILY MEMBER THAT PT WILL NOT DISCHARGE HOME UNTIL SATURDAY. CM REVIEWED CHART WHICH HAD NO INDICATIONS OF THIS FACT AND NOTES THAT HOSPICE IS BEING ARRANGED FOR PT'S DISCHARGE HOME. BOB INFORMED CM THAT IT IS FAMILY TELLING THEM PT WILL NOT DISCHARGE UNTIL AND ASSURED CM THAT THEY CAN DELIVER MEDICAL EQUIPMENT PRIOR TO THEN WITH FAMILY COOPERATION. CM ATTEMPTED TO SEE FAMILY IN ROOM, THEY ARE NOT THERE. CM CALLED EDGAR MCKAY, PRIMARY CONTACT, , THERE WAS NO ANSWER, CM LEFT MESSAGE ASKING FOR RETURN CALL TO DISCUSS DISCHARGE PLAN. CM WAITING FAMILY TO CALL CM TO DISCUSS DISCHARGE HOME WITH HOSPICE. GEORGES MARIN, CASE MANAGEMENT DCP- Discharge Planning Updated by [id number]: Vaibhav Marin on 07/20/19 12:[address] Patient Name: SUMI MCKAY Encounter No: [id number] : 1945 Primary Insurance: [facility] MEDICARE SOLUTIONS Anticipated DC Date: 07-20-2019 Planned Disposition: Home with Hospice External Planned Provider: HOSPICE HOME CARE DCP follow-up note: CM RECEIVED HOSPICE CONSULT ORDER, MET WITH PT AND THREE DAUGHTERS IN ROOM. PT NOT RESPONSIVE TO CM; DAUGHTERS PRESENT WERE EDGAR MCKAY, DAVID WOODY AND SPRING. ALL THREE DAUGHTERS HAVE MET WITH THE DOCTOR TODAY AND AGREE FOR HOSPICE CARE FOR PT. THEY PLAN TO TAKE PT TO HER OWN HOME LOCATED AT [address] [place] [address]. FAMILY WILL BE TAKING CARE OF PT AT HOME. THEY USED [facility] FOR THEIR FATHER AND WANT [facility] FIRST [facility]ICE, SECOND CHOICE IS HOSPICE HOME CARE. IMPORTANT MESSAGE FROM MEDICARE PROVIDED AND EXPLAINED. CHOICE FOR [facility] AND HOSPICE HOME CARE SIGNED. CM CALLED [facility], , SPOKE TO RENETTA AND WAS ADVISED THAT [facility] DO[facility] NOT [facility]. CM CALLED HOSPICE HOME CARE, , SPOKE TO DILSHAD WHO TOOK HOSPICE REFERRAL AND WILL CONTACT THEIR [place] OFFICE AND HAVE A NURSE COME AND MEET WITH FAMILY THIS AFTERNOON. CM ADVISED DILSHAD THAT PT CAN DISCHARGE HOME SOON HOSPICE ARRANGEMENTS AND EQUIPMENT ARE ARRANGED. CM FAXED REFERRAL TO HOSPICE HOME CARE AT [phone]. CM WAITING HOSPICE ACCEPTANCE AND HOME ARRANGEMENTS TO BE COMPLETED BY HOSPICE HOME CARE. WHEN HOSPICE ADVISES THAT ALL ARRANGEMENTS ARE COMPLETED TO RECEIVE PT AT HOME, OBTAIN DISCHARGE ORDERS AND FAX TO HOSPICE HOME CARE AT [phone]. PT TO TRANSPORT HOME VIA AMBULANCE FOR HOSPICE ADMISSION AFTER ARRIVAL AT HOME. Vaibhav Marin,. CASE MANAGEMENT DCP- Discharge Planning Updated by [id number]: Amy Jadyn on 07/17/19 4:[address] Patient Name: SUMI MCKAY Admission Status: Elective Accout number: [id number] Admission Date: 07-14-2019 : 1945 Admission Diagnosis: Attending: EDA GUERRA Current LOS: 3 Anticipated DC Date: Planned Disposition: Primary Insurance: [facility] MEDICARE SOLUTIONS Discharge Planning Comments: CM MET WITH PATIENT BUT IS VERY HARD TO UNDERSTAND BECAUSE OF THE SORES ON HER MOUTH. SHE DOES HAVE HH BUT DOESN'T KNOW WHO WITH AND HER GRANDAUGHTER LIVES WITH HER. CM WILL TALK TO [facility] WHEN SHE IS HERE. CM TO FOLLOW AND ASSIST. Secret Code Expert: Amy Salamanca Coverage Notice Reviewer: [id number] Pippa Marin Notice Issued Date-Time: 07/20/2019 12:35 Notice Type: IM Discharge Notice Notice Delivered To: Family Member Relationship to Patient: Daughter Turkish Rubber Name: EDGAR MCKAY Delivery Method: HAND - Hand Delivered Marilee Days: Prior Verbal Notification: Recipient Understood Notice: Yes Recipient Signature: Yes Med Rec Note Co-signed by Attending: Coverage Notice Comment: Reviewer: [id number] Pippa Marin Notice Issued Date-Time: 07/20/2019 12:35 Notice Type: Patient Choice Letter Notice Delivered To: Family Member Relationship to Patient: Daughter Turkish Rubber Name: DEGAR MCKAY Delivery Method: HAND - Hand Delivered Marilee Days: Prior Verbal Notification: Recipient Understood Notice: Yes Recipient Signature: Yes Med Rec Note Co-signed by Attending: Coverage Notice Comment: 1- [facility] / 2 - HOSPICE HOME CARE Last DP export: 07/22/19 3:40 p Patient Name: SUMI MCKAY Page 99609 at 1653 All edits/amendments must be made on the electronic document DICTATION DATE: 07/22/191651 AIRCRAFT ELECTRONICS TECHNICAL OFFICER: EUNICE 07/22/19 1652 RPT#: [id number] DC DATE: STATUS: ADM IN [facility] [address] [place] [address] END OF REPORT
--- NOTE | 2019-07-22 17:24 | MORECARE ---
CASE MANAGEMENT DISCHARGE SUMMARY PATIENT: SUMI MCKAY UNIT: [id number] ADM DATE: 07/14/19 AGE: 74 : 43 SEX: F ROOM/BED: D.2583 AUTHOR: SANDIP,DOC PHYSICIAN: REFERRING PHYSICIAN: EDA GUERRA MD DATE OF SERVICE: 07/22/19 Discharge Plan Patient Name: SUMI MCKAY Facility: [facility]:[place] : 1945 Planned Disposition: Home with Hospice Anticipated Discharge Date: 07/22/19 Discharge Date: Expected LOS: 8 Initial Reviewer: [id number] Initial Review Date: 07/17/2019 Generated: 07/22/19 6:24 pm Comments DCP- Discharge Planning Updated by [id number]: Vaibhav Marin on 07/22/19 4:[address] Patient Name: SUMI MCKAY Encounter No: [id number] : 1945 Primary Insurance: [facility] MEDICARE SOLUTIONS Anticipated DC Date: 07-22-2019 Planned Disposition: Home with Hospice External Planned Provider: HOSPICE HOME CARE DCP follow-up note: CM FAXED DISCHARGE INFORMATION TO HOSPICE HOME CARE T [phone]. NOTIFY HOSPICE HOME CARE OF DISCHARGE AT [phone]. PT TO TRANSPORT HOME VIA AMBULANCE FOR HOSPICE ADMISSION AFTER ARRIVAL AT HOME. Lexie Bolanos CASE MANAGEMENT Appended by Vaibhav Marin on 07/22/2019 17:19 CDT: CM CALLED HOSPICE HOME CARE AT [phone], NOTIFIED PT IS LEAVING VIA AMBULANCE.. PT TO TRANSPORT HOME VIA AMBULANCE FOR HOSPICE ADMISSION AFTER ARRIVAL AT HOME. CM CALLED EDGAR MCKAY, PRIMARY CONTACT, , LEFT MESSAGE THAT PT IS BEING PICKED UP BY AMBULANCE FOR TRANSPORT HOME. Lexie Bolanos CASE MANAGEMENT DCP- Discharge Planning Updated by [id number]: Vaibhav Marin on 07/22/19 7:[address] Patient Name: SUMI MCKAY Encounter No: [id number] : 1945 Primary Insurance: C MEDICARE SOLUTIONS Anticipated DC Date: 07-22-2019 Planned Disposition: Home with Hospice External Planned Provider: [facility]OSPICE HOMECARE DCP follow-up note: CM CALLED EDGAR MCKAY, PRIMARY CONTACT, , SHE WILL BE HOME ALL DAY TO RECEIVE PT TODAY FOR HOSPICE CARE. FOR DISCHARGE FAX TO HOSPICE HOME CARE T [phone]. NOTIFY HOSPICE HOME CARE OF DISCHARGE AT [phone]. PT TO TRANSPORT HOME VIA AMBULANCE FOR HOSPICE ADMISSION AFTER ARRIVAL AT HOME. Lexie Bolanos CASE MANAGEMENT DCP- Discharge Planning Updated by [id number]: Vaibhav Marin on 07/21/19 12:[address] Patient Name: SUMI MCKAY Encounter No: [id number] : 1945 Primary Insurance: [facility] MEDICARE SOLUTIONS Anticipated DC Date: 07-22-2019 Planned Disposition: Home with Hospice External Planned Provider: [facility]OSPICE [facility] DCP follow-up note: CM CALLED EDGAR MCKAY, PRIMARY CONTACT, , WHO INFORMED CM THAT ALL MEDICAL EQUIPMENT HAS BEEN DELIVERED TO THE HOME AND THEY WILL NOT HAVE CAREGIVERS ARRANGED FOR PT UNTIL IN THE MORNING AND REQUESTED THAT PT BE SENT HOME FIRST THING IN THE MORNING. CM NOTIFIED JEREMIAS OF HOSPICE HOME CARE, . BEATRIZ WAGNER NOTIFIED. FOR DISCHARGE FIRST THING IN THE MORNING 07-22-19, FAX TO HOSPICE HOME CARE AT [phone]. NOTIFY HOSPICE HOME CARE OF DISCHARGE AT [phone]. PT TO TRANSPORT HOME VIA AMBULANCE FOR HOSPICE ADMISSION AFTER ARRIVAL AT HOME. Lexie Bolanos CASE MANAGEMENT DCP- Discharge Planning Updated by [id number]: Vaibhav Marin on 07/20/19 3:[address] Patient Name: SUMI MCKAY Encounter No: [id number] : 1945 Primary Insurance: C MEDICARE SOLUTIONS Anticipated DC Date: 07-21-2019 Planned Disposition: Home with Hospice External Planned Provider: HOSPICE HOME CARE DCP follow-up note: CM SPOKE TO MEGHAN OF HOME CARE, THEY WILL ACCEPT PT FOR HOME HOSPICE AND WILL HAVE ALL EQUIPMENT DELIVERED FOR HOME BY TOMORROW, 07-21-19. FAMILY IN AGREEMENT WITH PLAN AND HAVE SIGNED LEGALS FOR HOSPICE HOME CARE SERVICES. DILSHAD OF [facility] TO CALL CM AND CONFIRM DELIVERY OF MEDICAL EQUIPMENT TO RECEIVE AND ADMIT PT FOR HOME HOSPICE. CM WAITING HOME EQUIPMENT ARRANGEMENTS TO BE COMPLETED BY HOSPICE HOME CARE 07-21-19. WHEN HOSPICE ADVISES THAT ALL ARRANGEMENTS ARE COMPLETED TO RECEIVE PT AT HOME, OBTAIN DISCHARGE ORDERS AND FAX TO HOSPICE HOME CARE AT [phone]. NOTIFY HOSPICE HOME CARE OF DISCHARGE AT [phone]. PT TO TRANSPORT HOME VIA AMBULANCE FOR HOSPICE ADMISSION AFTER ARRIVAL AT HOME. Vaibhav Marin,. CASE MANAGEMENT Appended by Vaibhav Marin on 07/20/2019 16:32 CDT: CM RECEIVED CALL FROM JEREMIAS OF HOSPICE HOME CARE, ; THEIR MEDICAL EQUIPMENT PERSON CALLED FAMILY TO ARRANGE MEDICAL EQUIPMENT AND WAS INFORMED BY A FAMILY MEMBER THAT PT WILL NOT DISCHARGE HOME UNTIL SATURDAY. CM REVIEWED CHART WHICH HAD NO INDICATIONS OF THIS FACT AND NOTES THAT HOSPICE IS BEING ARRANGED FOR PT'S DISCHARGE HOME. BOB INFORMED CM THAT IT IS FAMILY TELLING THEM PT WILL NOT DISCHARGE UNTIL AND ASSURED CM THAT THEY CAN DELIVER MEDICAL EQUIPMENT PRIOR TO THEN WITH FAMILY COOPERATION. CM ATTEMPTED TO SEE FAMILY IN ROOM, THEY ARE NOT THERE. CM CALLED EDGAR MCKAY, PRIMARY CONTACT, , THERE WAS NO ANSWER, CM LEFT MESSAGE ASKING FOR RETURN CALL TO DISCUSS DISCHARGE PLAN. CM WAITING FAMILY TO CALL CM TO DISCUSS DISCHARGE HOME WITH HOSPICE. GEORGES MARIN, CASE MANAGEMENT DCP- Discharge Planning Updated by [id number]: Vaibhav Marin on 07/20/19 12:[address] Patient Name: SUMI MCKAY Encounter No: [id number] : 1945 Primary Insurance: [facility] MEDICARE SOLUTIONS Anticipated DC Date: 07-20-2019 Planned Disposition: Home with Hospice External Planned Provider: HOSPICE HOME CARE DCP follow-up note: CM RECEIVED HOSPICE CONSULT ORDER, MET WITH PT AND THREE DAUGHTERS IN ROOM. PT NOT RESPONSIVE TO CM; DAUGHTERS PRESENT WERE EDGAR MCKAY, DAVID MCKAY AND SPRING. ALL THREE DAUGHTERS HAVE MET WITH THE DOCTOR TODAY AND AGREE FOR HOSPICE CARE FOR PT. THEY PLAN TO TAKE PT TO HER OWN HOME LOCATED AT [address] [place] [address]. FAMILY WILL BE TAKING CARE OF PT AT HOME. THEY USED [facility] FOR THEIR FATHER AND WANT [facility] FIRST CHOICE, SECOND CHOICE IS HOSPICE HOME CARE. IMPORTANT MESSAGE FROM MEDICARE PROVIDED AND EXPLAINED. CHOICE FOR [facility] AND HOSPICE HOME CARE SIGNED. CM CALLED [facility], , SPOKE TO RENETTA AND WAS ADVISED THAT [facility]. CM CALLED HOSPICE HOME CARE, , SPOKE TO DILSHAD WHO TOOK HOSPICE REFERRAL AND WILL CONTACT THEIR [place] OFFICE AND HAVE A NURSE COME AND MEET WITH FAMILY THIS AFTERNOON. CM ADVISED DILSHAD THAT PT CAN DISCHARGE HOME SOON HOSPICE ARRANGEMENTS AND EQUIPMENT ARE ARRANGED. CM FAXED REFERRAL TO HOSPICE HOME CARE AT [phone]. CM WAITING HOSPICE ACCEPTANCE AND HOME ARRANGEMENTS TO BE COMPLETED BY HOSPICE HOME CARE. WHEN HOSPICE ADVISES THAT ALL ARRANGEMENTS ARE COMPLETED TO RECEIVE PT AT HOME, OBTAIN DISCHARGE ORDERS AND FAX TO HOSPICE HOME CARE AT [phone]. PT TO TRANSPORT HOME VIA AMBULANCE FOR HOSPICE ADMISSION AFTER ARRIVAL AT HOME. Vaibhav Marin,. CASE MANAGEMENT DCP- Discharge Planning Updated by [id number]: Amy Salamanca on 07/17/19 4:[address] Patient Name: SUMI MCKAY Admission Status: Elective Accout number: [id number] Admission Date: 07-14-2019 : 1945 Admission Diagnosis: Attending: EDA GUERRA Current LOS: 3 Anticipated DC Date: Planned Disposition: Primary Insurance: [facility] MEDICARE SOLUTIONS Discharge Planning Comments: CM MET WITH PATIENT BUT IS VERY HARD TO UNDERSTAND BECAUSE OF THE SORES ON HER MOUTH. SHE DOES HAVE HH BUT DOESN'T KNOW WHO WITH AND HER OLGA LIVES WITH HER. CM WILL TALK TO [facility] WHEN SHE IS HERE. CM TO FOLLOW AND ASSIST. Director Of Physiotherapy Services: Amy Salamanca Coverage Notice Reviewer: [id number] Pippa Marin Notice Issued Date-Time: 07/20/2019 12:35 Notice Type: IM Discharge Notice Notice Delivered To: Family Member Relationship to Patient: Daughter Transformer Inspector Name: EDGAR MCKAY Delivery Method: HAND - Hand Delivered Marilee Days: Prior Verbal Notification: Recipient Understood Notice: Yes Recipient Signature: Yes Med Rec Note Co-signed by Attending: Coverage Notice Comment: Reviewer: [id number] Pippa Marin Notice Issued Date-Time: 07/20/2019 12:35 Notice Type: Patient Choice Letter Notice Delivered To: Family Member Relationship to Patient: Daughter Transformer Inspector Name: EDGAR MCKAY Delivery Method: HAND - Hand Delivered Marilee Days: Prior Verbal Notification: Recipient Understood Notice: Yes Recipient Signature: Yes Med Rec Note Co-signed by Attending: Coverage Notice Comment: 1- [facility] / 2 - HOSPICE HOME C[facility] Last DP export: 07/22/19 3:53 p Patient Name: SUMI MCKAY Page 80810 at 1724 All edits/amendments must be made on the electronic document DICTATION DATE: 07/22/191723 ENGLISH PROFESSOR: EUNICE 07/22/191723 RPT#: [id number] DC DATE: STATUS: ADM IN [facility] [address] [place] [address] END OF REPORT
--- NOTE | 2019-07-22 17:34 | NUR ---
[facility] HERE TO TAKE PT. [facility] REQUESTED THAT PT PIV TO LEFT AC STAY IN PLACE DUE TO PT BEING A MED CODE AND TRANSPORT IS [id number]. [facility] WILL REMOVE PIV AT PT HOME.
== END 2019-07-22 17:35 | disposition home health service (06) | DRG 371 ==
LOC: D.ICU 17:27 → EDBD 23:21 → D.M2 23:21 → D.ICU 23:21 → D.M2 07-16 19:18
PROVIDERS: Internal Medicine Nephrology; ADMIT Internal Medicine Nephrology; ATTEND Internal Medicine Nephrology
DX: A04.72 Enterocolitis due to Clostridium difficile, not specified as recurrent (principal); N18.6 End stage renal disease; G93.41 Metabolic encephalopathy; R53.2 Functional quadriplegia; I21.4 Non-ST elevation (NSTEMI) myocardial infarction; R57.0 Cardiogenic shock; I13.2 Hypertensive heart and chronic kidney disease with heart failure and with stage 5 chronic kidney disease, or end stage renal disease; I69.954 Hemiplegia and hemiparesis following unspecified cerebrovascular disease affecting left non-dominant side; I50.32 Chronic diastolic (congestive) heart failure; E11.22 Type 2 diabetes mellitus with diabetic chronic kidney disease; K12.1 Other forms of stomatitis; D63.1 Anemia in chronic kidney disease; E11.51 Type 2 diabetes mellitus with diabetic peripheral angiopathy without gangrene; Z95.0 Presence of cardiac pacemaker; E03.9 Hypothyroidism, unspecified; K21.9 Gastro-esophageal reflux disease without esophagitis; F32.9 Major depressive disorder, single episode, unspecified; I25.10 Atherosclerotic heart disease of native coronary artery without angina pectoris; B00.1 Herpesviral vesicular dermatitis; M19.90 Unspecified osteoarthritis, unspecified site; D86.9 Sarcoidosis, unspecified; I48.0 Paroxysmal atrial fibrillation; R62.7 Adult failure to thrive